=== PATIENT | female | born 1945 | race Caucasian/White ===

== ENCOUNTER 2016-03-26 11:39 | Emergency (ER) | payer OTHER ==
[~2016-03-26] VITALS: Ht 154.9 cm; Wt 85.3 kg
[~2016-03-26 11:39] MED LIST: ASPI81TA28 PO; ESOM20CA PO; ESTR0.5T3 PO; FLV400 PO; LISI-787 PO
[2016-03-26 11:55] VITALS: TEMP 36.8; Ht 154.9 cm; Wt 85.3 kg
[2016-03-26] MEDS ORDERED: SIMV40TA2 PO (12:31)
[2016-03-26 12:36] LABS: BASO % 0.4 %; BASO ABS # 0.03 K/uL (0-0.2); COMPLETE YES; EOS % 0.7 %; HEMATOCRIT 41.8 % (37-47); IG% 0.2 %; LYMPH % 32.8 %; LYMPH ABS # 2.68 K/uL (1.2-3.4); MEAN CELL VOLUME 85.3 fL (80-100); MEAN CORPUSCULAR HEMOGLOBIN 29.4 pg (25-34); MEAN CORPUSCULAR HGB CONC 34.4 g/dl (32-36); MEAN PLATELET VOLUME 10.3 fL (7.4-10.4); MONO % 5.9 %; PLATELET COUNT 305 K/uL (130-400); WHITE BLOOD COUNT 8.18 K/uL (4.8-10.8)
[2016-03-26 12:37] VITALS: O2SAT 96
[2016-03-26 12:43] LABS: BUN/CREATININE RATIO 14.7 (10-20); CALCIUM 9.5 mg/dl (8.5-10.1); CREATININE 0.94 mg/dl (0.60-1.20); MAGNESIUM 1.9 mg/dl (1.8-2.4); POTASSIUM 3.6 mmol/L (3.5-5.1)
[2016-03-26 12:45] LABS: PROTHROMBIN TIME (PATIENT) 10.7 SECONDS (9.0-12.0)
[2016-03-26 12:54] LABS: ALB/GLOB RATIO 1.1 (0.9-2); CKMB/CK RATIO 1.2 (0-3.0); THYROID STIMULATING HORMONE 1.78 uIu/ml (0.300-4.500)
--- NOTE | 2016-03-26 12:54 | DIAGNOSTIC IMAGING REPORT ---
CHEST ONE VIEW PORTABLE HISTORY: Hypertension. COMPARISON: Chest 03/18/2007. FINDINGS: The lungs are clear. Cardiac silhouette is normal in size. No pleural effusions. No pneumothorax. Lumbar spinal fusion hardware is partially visualized. IMPRESSION: No acute process. Electronically signed by: Vaughn Velez M.D. 03/26/2016 12:53 PM Dictated Date/Time: 03/26/2016 12:52 PM
--- NOTE | 2016-03-26 13:03 | DIAGNOSTIC IMAGING REPORT ---
HEAD CT NONCONTRAST CT DOSE: 720.95 mGycm HISTORY: Hypertension htn/bitemporal has TECHNIQUE: Multiaxial CT images of the head were performed without the use of intravenous contrast. Comparison: None. Findings: The paranasal sinuses and mastoid air cells are clear. The calvarium and skull base are intact. The ventricles and sulci are within normal limits. There is no mass, hematoma, midline shift, or acute infarct. Impression: No acute intracranial abnormality. Electronically signed by: Nithin Moore M.D. 03/26/2016 1:02 PM Dictated Date/Time: 03/26/2016 1:00 PM
[2016-03-26] MEDS ORDERED: CLONIDINE HCL 0.1 MG TAB PO ONE (13:30)
--- NOTE | 2016-03-26 13:38 | EMERGENCY ROOM VISIT NOTE ---
ED Visit Note First contact with patient: 12:12 This Patient was discussed with the physician graduate research assistant, Fernando Cain PA-C. The pertinent historical and physical exam findings were confirmed. I agree with the studies ordered and with the interpretations of these studies. I agree with the disposition and care plan.
[2016-03-26 14:03] VITALS: BP 133/102; PULSE 98; O2SAT 96
[2016-03-26] MEDS ORDERED: CTP/1 PO (14:17)
--- NOTE | 2016-03-26 14:18 | EMERGENCY ROOM VISIT NOTE ---
History First contact with patient: 12:12 Chief Complaint: HYPERTENSION Stated Complaint: ELEVATED BP History of Present Illness The patient is a 70 year old female who presents to the Emergency Department by private vehicle for evaluation of her elevated blood pressure. The patient had a regularly scheduled appointment with her primary care provider this morning and was found to have hypertension. She is treated for hypertension, but reports that her blood pressure has not been this high. She does report having bitemporal headaches over the last few days, but she did not equate much to the. She reports minimal discomfort and only describes it as a "nagging" pain. She is tried nothing for her symptoms to this point. The patient reports no recent changes in her medications. The patient denies any falls. She does report striking her head on the handle of her refrigerator yesterday which did cause some minimal discomfort. The patient denies any blurry vision, double vision, ringing in the ears, dizziness, lightheadedness, slurred speech, facial droop, unilateral weakness/numbness, amongst others. She rates her current discomfort as a 0/10. The patient does not utilize any blood thinners. Review of Systems A complete 10-point Review of Systems was discussed with the patient, with pertinent positives and negatives listed in the History of Present Illness. All remaining Review of Systems questions can be considered negative unless otherwise specified. Past Medical/Surgical History Medical Problems: (1) Asthma, Unspecified (2) Back pain (3) Spinal cord stimulator status Surgical Problems: (1) Previous back surgery Family History No significant family history Social History Smoking Status: Never Smoker Marital Status: Housing Status: lives with significant other Occupation Status: retired Current/Historical Medications Scheduled Aspirin (Aspirin Ec), 81 MG PO QAM Clonidine Hcl (Catapres), 0.1 MG PO BID Esomeprazole Magnesium (Nexium), 20 MG PO QAM Folic Acid (Folic Acid), 400 MCG PO QAM Lisinopril & Hydrochlorothiazi (Zestoretic 20-12.5 mg), 1 TAB PO QAM Simvastatin (Zocor), 40 MG PO QPM Allergies Coded Allergies: Honey (Verified Allergy, Severe, throat swells;wheezing, 03/26/16) Bee Venom (Verified Allergy, Intermediate, swelling;hives, 03/26/16) Moxifloxacin (Verified Adverse Reaction, Intermediate, general "knocks me out", 03/26/16) Physical Exam Vital Signs Date Time Temp Pulse Resp B/P Pulse Ox O2 Delivery O2 Flow Rate FiO2 03/26/16 14:03 98 17 133/102 96 03/26/16 13:02 116 18 179/98 94 Room Air 03/26/16 12:37 104 03/26/16 12:37 96 Room Air 03/26/16 11:55 36.8 118 20 200/106 96 Room Air Pain Rating (0-10): 0 Physical Exam VITAL SIGNS - Vital signs and nursing notes were reviewed. GENERAL - 70-year-old female appearing her stated age who is in no acute distress. Communicates well with provider and answers questions appropriately. HEAD - Normocephalic, Atraumatic. No Hillman's Sign or Raccoon's Eyes. No depressed skull fractures palpable. EYES - PERRL with EOMI bilaterally. Sclera anicteric. Palpebral conjunctiva pink and moist with no injection noted. EARS - No deformities of external structures noted on gross examination bilaterally. No pain elicited with palpation of the tragus bilaterally. External auditory canals without discharge or otorrhea. Tympanic membranes pearly briscoe without retraction or bulging. NOSE - Midline and without cyanosis. No epistaxis or purulent drainage noted. Septum midline without deviation or septal hematoma noted. MOUTH/OROPHARYNX - Without perioral cyanosis. Buccal mucosa pink and moist and without leukoplakia. Tongue midline with equal elevation of palate bilaterally. No tonsillar hypertrophy, erythema, or exudates noted. Good dentition noted. NECK - Neck with FROM. Supple to palpation. no lymphadenopathy noted. No nuchal rigidity. LUNGS - Chest wall symmetric without accessory muscle use, intercostals retractions, or central cyanosis. Normal vesicular breath sounds CTA B/L. No wheezes, rales, or rhonchi appreciated. CARDIAC - RRR with S1/S2. No murmur, rubs, or gallops appreciated. ABDOMEN - Abdominal contour obese and without pulsations or visible masses. BS normoactive all four quadrants. No tenderness, palpable masses, hepatosplenomegaly, or ascites noted. EXTREMITIES - No pretibial edema present. +3/5 radial and dorsalis pedis pulses palpated throughout. FROM with no tremors, fasciculations, or clonus noted on PROM throughout. +5/5 strength noted in UE/LE bilaterally. NEUROLOGIC - Cranial nerves II through XII grossly intact. Sensory intact to light touch throughout. Patellar reflexes +2/4. Patient able to perform rapid alternating movements appropriately. Negative Pronator Drift. Negative finger-to -nose. PSYCH - A&Ox3 and cooperates fully with examiner. Pt is very pleasant and interacts well with examiner. Medical Decision & Procedures ER Provider Diagnostic Interpretation: Radiological imaging and reports were reviewed by myself. Radiologist's Interpretation as follows: CHEST ONE VIEW PORTABLE HISTORY: Hypertension. COMPARISON: Chest 03/18/2007. FINDINGS: The lungs are clear. Cardiac silhouette is normal in size. No pleural effusions. No pneumothorax. Lumbar spinal fusion hardware is partially visualized. IMPRESSION: No acute process. HEAD CT NONCONTRAST CT DOSE: 720.95 mGycm HISTORY: Hypertension htn/bitemporal has TECHNIQUE: Multiaxial CT images of the head were performed without the use of intravenous contrast. Comparison: None. Findings: The paranasal sinuses and mastoid air cells are clear. The calvarium and skull base are intact. The ventricles and sulci are within normal limits. There is no mass, hematoma, midline shift, or acute infarct. Impression: No acute intracranial abnormality. Laboratory Results 03/26/16 12:10 Red Blood Count 4.90, Mean Corpuscular Volume 85.3, Mean Corpuscular Hemoglobin 29.4, Mean Corpuscular Hemoglobin Concent 34.4, Mean Platelet Volume 10.3, Neutrophils (%) (Auto) 60.0, Lymphocytes (%) (Auto) 32.8, Monocytes (%) (Auto) 5.9, Eosinophils (%) (Auto) 0.7, Basophils (%) (Auto) 0.4, Neutrophils # (Auto) 4.91, Lymphocytes # (Auto) 2.68, Monocytes # (Auto) 0.48, Eosinophils # (Auto) 0.06, Basophils # (Auto) 0.03 03/26/16 12:10 Test 03/26/16 12:10 White Blood Count 8.18 K/uL (4.8-10.8) Red Blood Count 4.90 M/uL (4.2-5.4) Hemoglobin 14.4 g/dL (12.0-16.0) Hematocrit 41.8 % (37-47) Mean Corpuscular Volume 85.3 fL (80-100) Mean Corpuscular Hemoglobin 29.4 pg (25-34) Mean Corpuscular Hemoglobin Concent 34.4 g/dl (32-36) Platelet Count 305 K/uL (130-400) Mean Platelet Volume 10.3 fL (7.4-10.4) Neutrophils (%) (Auto) 60.0 % Lymphocytes (%) (Auto) 32.8 % Monocytes (%) (Auto) 5.9 % Eosinophils (%) (Auto) 0.7 % Basophils (%) (Auto) 0.4 % Neutrophils # (Auto) 4.91 K/uL (1.4-6.5) Lymphocytes # (Auto) 2.68 K/uL (1.2-3.4) Monocytes # (Auto) 0.48 K/uL (0.11-0.59) Eosinophils # (Auto) 0.06 K/uL (0-0.5) Basophils # (Auto) 0.03 K/uL (0-0.2) RDW Standard Deviation 44.6 fL (36.4-46.3) RDW Coefficient of Variation 14.3 % (11.5-14.5) Immature Granulocyte % (Auto) 0.2 % Immature Granulocyte # (Auto) 0.02 K/uL (0.00-0.02) Prothrombin Time 10.7 SECONDS (9.0-12.0) Prothromb Time International Ratio 1.0 (0.9-1.1) Activated Partial Thromboplast Time 25.6 SECONDS (21.0-31.0) Partial Thromboplastin Ratio 1.0 Anion Gap 13.0 mmol/L (3-11) Est Creatinine Clear Calc Drug Dose 55.2 ml/min Estimated GFR () 71.2 Estimated GFR (Non- 61.5 BUN/Creatinine Ratio 14.7 (10-20) Calcium Level 9.5 mg/dl (8.5-10.1) Magnesium Level 1.9 mg/dl (1.8-2.4) Total Bilirubin 0.6 mg/dl (0.2-1) Aspartate Amino Transf (AST/SGOT) 28 U/L (15-37) Alanine Aminotransferase (ALT/SGPT) 41 U/L (12-78) Alkaline Phosphatase 111 U/L (45-117) Total Creatine Kinase 98 U/L (26-192) Creatine Kinase MB 1.2 ng/ml (0.5-3.6) Creatine Kinase MB Ratio 1.2 (0-3.0) Troponin I < 0.015 ng/ml (0-0.045) Total Protein 8.1 gm/dl (6.4-8.2) Albumin 4.2 gm/dl (3.4-5.0) Globulin 3.9 gm/dl (2.5-4.0) Albumin/Globulin Ratio 1.1 (0.9-2) Lipase 108 U/L (73-393) Thyroid Stimulating Hormone (TSH) 1.780 uIu/ml (0.300-4.500) Medications Administered Medications (Trade) Dose Ordered Sig/Charles Route Start Time Stop Time Status Last Admin Dose Admin Clonidine HCl (Catapres Tab) 0.1 mg NOW ONCE PO 03/26/16 13:30 03/26/16 13:31 DC 03/26/16 13:24 0.1 MG Procedure Patient was placed on the youth nutritional monitor and monitored throughout the entire extent of their stay. In addition, the patient's pulse oximetry was monitored throughout the entire stay. Any abnormalities or aberrancies were addressed appropriately. ECG Indication: other (hyptertension) Rate (beats per minute): 121 Rhythm: sinus tachycardia Findings: no acute ischemic change, no ectopy Change: no significant change (from 02/07/2014.) ED Course Patient was seen and evaluated by myself. Labs were drawn, saline lock in place. EKG and chest x-ray as well as CT of the head were obtained. Laboratory results demonstrate no acute leukocytosis, worrisome anemia, or bandemia. The patient has no significant electrolyte abnormalities. Cardiac enzymes are unremarkable. Troponin was negative. CT the head was unremarkable. Patient was discussed with my attending physician who agrees with diagnostic approach and treatment plan. The patient was treated with 0.1 mg clonidine orally. Her blood pressure did resolve nicely. The patient points no discomfort this time. The patient was encouraged to follow up with her primary care provider from today's visit. She was educated on worrisome symptoms for return visit to the emergency department. Patient discharged home in good condition. Medical Decision Given the patient's presentation and stated complaints, I did elect to perform the above-mentioned workup. The patient presents today with hypertension as well as bitemporal headaches. The patient has no focal neurological deficits. Her exam is otherwise unremarkable. Her blood pressure responded nicely wound the emergency department. CT the head demonstrates no acute findings. EKG demonstrates no acute findings either. Cardiac assessment and electrolytes are unremarkable. The patient will continue her current blood pressure medications. She'll be started on clonidine for the next few days. She'll follow-up with her primary care provider from today's visit or return for changing/worsening symptoms. Patient discharged home in good condition. In the evaluation and treatment of this patient, the following differential diagnoses were considered: AL, ASC, Dysrhythmia, Angina, Mediastinitis, GERD, Esophagitis, PE, Pneumonia, Bronchitis, Costochondritis, Rib Fracture, Zoster. Impression Primary Impression: Hypertension Additional Impression: Headache Departure Information Dispostion Home / Self-Care Condition GOOD Prescriptions Clonidine Hcl (CATAPRES) 0.1 Mg Tab 0.1 MG PO BID for 7 Days, #14 TAB Prov: Fernando Cain PA-C 03/26/16 Referrals Reynaldo Mai M.D. (PCP) Patient Instructions Hypertension Control, [facility] Additional Instructions You have been treated in the Emergency Department for your Hypertension. For pain control, you can use the following epwi-fco-cisgqai medicines (if >12 yo): - Regular strength (325mg/tab) Tylenol (acetaminophen) 2 tabs every 4-6 hours as needed. Do not exceed 12 tablets in a 24 hour period. Avoid taking more than 4 grams (4000 mg) of Tylenol per day. This includes any other sources of acetaminophen you may take on a regular basis. - Regular strength (200 mg/tab) Advil (ibuprofen) 1-2 tabs every 4-6 hours as needed. Do not exceed a dose of 3200 mg per day. You should schedule a follow-up appointment with your Primary Care Provider in 2 -3 days for further evaluation from today's Emergency Department visit. Return to the Emergency Department if your current symptoms worsen despite treatment course outlined above, or if you develop any of the following symptoms : worsening chest pain, associated jaw/arm pain, nausea, dizziness, shortness of breath, bloody cough, or fainting. Problem Qualifiers Primary Impression: Hypertension Hypertension type: unspecified secondary hypertension Qualified Codes: I15.9 - Secondary hypertension, unspecified Additional Impression: Headache Headache type: unspecified Headache chronicity pattern: acute headache Intractability: not intractable Qualified Codes: R51 - Headache
== END 2016-03-26 14:54 | disposition home or self-care (01) ==
LOC: C.EDB 11:40 → C.EDC 14:54
DX: I10 Essential (primary) hypertension (principal); R51 Headache; R00.0 Tachycardia, unspecified; J45.909 Unspecified asthma, uncomplicated; Z98.890 Other specified postprocedural states; Z79.82 Long term (current) use of aspirin; Z79.899 Other long term (current) drug therapy; Z88.8 Allergy status to other drugs, medicaments and biological substances; Z91.018 Allergy to other foods; Z91.030 Bee allergy status

== ENCOUNTER → 2016-06-14 | Outpatient (CLI) | payer OTHER ==
[~2016-06-14] MED LIST changes: -ESTR0.5T3 PO; +SIMV40TA2 PO
--- NOTE | 2016-06-14 12:16 | DIAGNOSTIC IMAGING REPORT ---
Limited bone scan BONE SCAN LIMITED (NM) CLINICAL HISTORY: Foot and ankle pain TECHNIQUE: Examination is acquired following the administration of 27.5 mCi technetium 99m MDP. COMPARISON STUDY: None FINDINGS: Mild scattered degenerative activity of the right and to lesser extent left heel and foot. There is mild involvement of the intertarsal region of the left ankle and foot area so more prominent increase in activity is seen at the posterior calcaneus on the right, as well as tarsometatarsal and metatarsophalangeal joint regions of the right foot. This pattern is suggestive of a degenerative process. IMPRESSION: Findings consistent with degenerative change of the right and to a lesser extent ankle and foot. Electronically signed by: Nithin Moore M.D. 06/14/2016 12:14 PM Dictated Date/Time: 06/14/2016 12:12 PM
== END | disposition home or self-care (01) ==
LOC: C.NUCL 07:49
PROVIDERS: ATTEND Orthopaedic Surgery
DX: M72.2 Plantar fascial fibromatosis (principal)

== ENCOUNTER → 2017-09-01 | Outpatient (CLI) | payer OTHER ==
[2017-09-01 13:44] LABS: BLOOD UREA NITROGEN 18 mg/dl (7-18); CARBON DIOXIDE 26 mmol/L (21-32); CHOLESTEROL 300 mg/dl (0-200); CREATININE 0.92 mg/dl (0.60-1.20); GLUCOSE 105 mg/dl (70-99); LDL CHOLESTEROL CALCULATED 209 mg/dl; SODIUM 138 mmol/L (136-145)
== END | disposition home or self-care (01) ==
LOC: C.LABPBG 09:00
PROVIDERS: ATTEND Family Medicine
DX: E78.5 Hyperlipidemia, unspecified (principal); I10 Essential (primary) hypertension

== ENCOUNTER 2018-05-28 10:05 | Inpatient (IN) ==
--- NOTE | 2018-05-12 13:06 | Anesthesiology Consultation ---
Date of Service May 12, 2018 Assessment & Plan (1) Encounter for pre-operative examination: Chart Review Chart Review: Acceptable Risk for Surgery and Patient seen in Pre Admission Testing Consults Requested none Patient was reviewed by cardio and Dr. Carrasco's office sent a not over stating " Ms. Hillman is cleared and may hold her Eliquis 48 hrs prior to her upcoming surgical procedure. She should resume Eliquis as soon as safely possible when cleared by surgeon. Thank you regarding this matter." Teaching & Discussion Pre-Anesthesia Teaching/Discussion Notes: Instructed NPO after midnight before surgery, except medications with 15 cc of water. Medication instructions provi ded according to the PAT guidelines. History Surgery Operation Date: 05/28/18 07:30 Proposed Procedures p Removal Implants L2-L3, L3-L4, - Stone Wyatt DO s T12-L1, L1-L2 Intrumentation and Fusion - Stone Wyatt DO Height/Weight Height: 5 ft 1 in Weight: 82.8 kg Allergies Allergy/AdvReac Type Severity Reaction Status Date / Time honey Allergy Severe throat Verified 05/07/18 14:58 swells;wheezing bee pollen Allergy hives, Verified 05/07/18 14:58 throat swelling moxifloxacin AdvReac Intermediate general Verified 05/07/18 14:58 "knocks me out" Medications Home Medications Medication Instructions Recorded Confirmed Last Taken acetaminophen 1,000 mg PO Q6H PRN 05/07/18 05/07/18 Unknown apixaban [Eliquis] 5 mg PO BID 05/07/18 05/07/18 Unknown aspirin [Aspir-81] 81 mg PO QAM 05/07/18 05/07/18 Unknown atorvastatin 40 mg PO 3XWK 05/07/18 05/07/18 Unknown coenzyme Q10 [CoQ-10] 100 mg PO QPM 05/07/18 05/07/18 Unknown diltiazem HCl [Cartia XT] 120 mg PO QPM 05/07/18 05/07/18 Unknown esomeprazole magnesium 20 mg PO QAM 05/07/18 05/07/18 Unknown folic acid 0.8 mg PO QAM 05/07/18 05/07/18 Unknown lisinopril-hydrochlorothiazide 1 tab PO QAM 05/07/18 05/07/18 Unknown tramadol 50 mg PO Q12H PRN 05/07/18 05/07/18 Unknown Past Medical History Medical History Atrial fibrillation Degenerative disc disease GERD (gastroesophageal reflux disease) History of shingles Hx of myocardial infarction Was not feeling well and was sent to [facility] by PCP. Did cardiac cath with no stents. Hyperlipidemia Hypertension Osteoarthritis Past Family History Family History Mother Family history of diabetes mellitus Other FHx: brain cancer FHx: breast cancer Past Surgical History Surgical History History of back surgery x2 History of cardiac cath 09/2017 - [facility] History of carpal tunnel release of both wrists History of cataract surgery History of partial hysterectomy right ovary not removed Hx of arthroscopic knee surgery right Hx of foot surgery x3 procedures at same surgery - foot, heel , lower tib/fib Nausea and vomiting after administration of anesthetic agent Past Anesthesia History No Hx of Anesthesia Complications and No Family Hx of Anesthesia Complications History of PONV Yes Motion Sickness Screening History of Motion Sickness: No Social History Smoking Status: Never smoker Do You Dip or Chew Tobacco: No Hx Alcohol Use: Yes Alcohol type: wine alcohol intake frequency: holidays/special occasions only Hx Substance Use: No Exercise / Class Metabolic Activity II 4-5 Yardwork/Stairs/Walk up hill (Limited due to back pain. Denies CP or SOB. Lives on one story and hasn't climbed stairs in many months. ) Review of Systems Patient denies chest pain, shortness of breath, dyspnea on exertion, cough, wheezing, palpitations. +Joint Pain (back, knees) +Acid Reflux (controlled with medication) Physical Exam Vital Signs BP: 117/75 P: 81 R: 16 T: 97.8 SPO2: 96% on RA ENMT Thyromental Distance: > or= 3.5 Finger Breadths (3.5) Mallampati Class: I Neck normal visual inspection, trachea midline and + limited neck extension Respiratory normal respiratory effort Auscultation: lungs clear to auscultation bilaterally Cardiovascular Rate/Rhythm: regular rate and regular rhythm Heart Sounds: no murmur Vessels: no carotid bruit Neurologic moves all extremities Motor/Sensory: + sensory deficit Psychiatric Orientation: alert and oriented x 3 Testing Electrocardiogram Date: 01/08/18 Findings: + NSR @ (91) Left atrial enlargement. Poor R wave progression - may be secondary to pulmonary disease consider old anterior infarct. Low voltage with rightward P-axis and rotation- possible pulmonary disease. Chest X-Ray Date: 05/12/18 Findings: + NAD FINDINGS: PA and lateral chest radiographs are compared to study dated 03/26. The cardiomediastinal silhouette is unremarkable, noting atherosclerotic calcification of the thoracic aorta. Chronic interstitial thickening is similar to previous. The lungs and pleural spaces are clear. There is no pneumothorax. The skeletal structures are osteopenic. The bony thorax appears intact. Fusion hardware is partially imaged in the upper lumbar spine. IMPRESSION: No active disease in the chest. Cardiac Catheterization Date: 10/03/17 Findings: + normal Intervention: + none IMPRESSION AND PLAN: 1. Moderate mid LAD stenosis with borderline first diagonal branch proximal stenosis. 2. Normal left ventricular systolic function. COMPLICATIONS: 1. None. RECOMMENDATIONS: 1. Medical therapy and aggressive risk factor modification. Laboratory Results 05/12/18 13:37 05/12/18 13:37 Blood Type O Positive 05/12/18 13:37 Antibody Screen NEGATIVE 05/12/18 13:37 PT 10.3 Seconds (9.0-12.0) 05/12/18 13:37 INR 1.0 (0.9-1.1) 05/12/18 13:37 APTT 27.9 Seconds (21.0-31.0) 05/12/18 13:37
--- NOTE | 2018-05-12 13:10 | PAT Medication Instructions ---
Medication Instructions Date of Service May 12, 2018 Home Medications acetaminophen 1,000 mg PO Q6H NEEDED apixaban [Eliquis] 5 mg PO BID aspirin [Aspir-81] 81 mg PO QAM atorvastatin 40 mg PO 3XWK coenzyme Q10 [CoQ-10] 100 mg PO QPM diltiazem HCl [Cartia XT] 120 mg PO QPM esomeprazole magnesium 20 mg PO QAM folic acid 0.8 mg PO QAM lisinopril-hydrochlorothiazide 1 tab PO QAM tramadol 50 mg PO Q12H NEEDED Continue as directed atorvastatin 40 mg PO 3XWK ASK your prescriber and surgeon apixaban [Eliquis] 5 mg PO BID aspirin [Aspir-81] 81 mg PO QAM STOP taking 2 weeks before surgery coenzyme Q10 [CoQ-10] 100 mg PO QPM DO NOT take the morning of surgery folic acid 0.8 mg PO QAM lisinopril-hydrochlorothiazide 1 tab PO QAM Take morning of surgery With a small sip of water, OTHERWISE NOTHING TO EAT OR DRINK AFTER MIDNIGHT: acetaminophen 1,000 mg PO Q6H NEEDED tramadol 50 mg PO Q12H NEEDED (stop 4 hours before surgery) esomeprazole magnesium 20 mg PO QAM Take evening before surgery acetaminophen 1,000 mg PO Q6H NEEDED tramadol 50 mg PO Q12H NEEDED diltiazem HCl [Cartia XT] 120 mg PO QPM Other Notes If you have any questions please call us at [phone] or [phone] or [phone] or [phone]
--- NOTE | 2018-05-12 14:09 | XRay Report ---
TWO VIEW CHEST CLINICAL HISTORY: Preoperative examination. FINDINGS: PA and lateral chest radiographs are compared to study dated 03/26/2016. The cardiomediastin al silhouette is unremarkable, noting atherosclerotic calcification of the thoracic aorta. Chronic in terstitial thickening is similar to previous. The lungs and pleural spaces are clear. There is no pn eumothorax. The skeletal structures are osteopenic. The bony thorax appears intact. Fusion hardware i s partially imaged in the upper lumbar spine. IMPRESSION: No active disease in the chest. Electronically signed by: Vitor Currie M.D. 05/12/2018 2:08 PM
[2018-05-12 14:39] LABS: Basophils # (auto) 0.03 K/uL (0-0.2); Basophils % (auto) 0.4 %; Eosinophils # (auto) 0.15 K/uL (0-0.5); Hematocrit (blood only) 41.1 % (37-47); Hemoglobin 13.7 g/dL (12.0-16.0); Immature Granulocytes # (auto) 0.01 K/uL (0.00-0.02); Immature Granulocytes % (auto) 0.1 %; Lymphocytes # (auto) 2.39 K/uL (1.2-3.4); Lymphocytes % (auto) 31.7 %; Mean Corpuscular Hgb Conc 33.3 g/dL (32-36); Mean Platelet Volume 10.6 fL (7.4-10.4); Monocytes # (auto) 0.42 K/uL (0.11-0.59); Monocytes % (auto) 5.6 %; Neutrophils # (auto) 4.54 K/uL (1.4-6.5); Neutrophils % (auto) 60.2 %; Platelet Count 262 K/uL (130-400); RDW Coefficient of Variation 15.1 % (11.5-14.5); RDW Standard Deviation 49.2 fL (36.4-46.3); Red Blood Count 4.62 M/uL (4.2-5.4); White Blood Count 7.54 K/uL (4.8-10.8)
[2018-05-12 14:49] LABS: BUN Creatinine Ratio 19.3 (10-20); Calcium 9.1 mg/dl (8.5-10.1); Est GFR (African American) 77.1; Est GFR (Non-African American) 66.6; Potassium 3.7 mmol/L (3.5-5.1)
[2018-05-12 14:58] LABS: Partial Thromboplastin Time 27.9 Seconds (21.0-31.0); Prothrombin Time 10.3 Seconds (9.0-12.0)
--- NOTE | 2018-05-27 11:50 | History and Physical Report ---
DATE OF ADMISSION: 05/28/2018 CHIEF COMPLAINT: Low back pain, paresthesias, numbness, and tingling. Working diagnosis of instability and stenosis, lumbar spine. HISTORY OF PRESENT ILLNESS: Adelaida is delightful. She has a breakdown of her fusion, instability and stenosis up above her prior fusion. Otherwise, she is relatively stable with her pain. She is miserable, mild neurological deficits. PAST MEDICAL HISTORY: Positive for rheumatoid arthritis, high cholesterol, heart disease, hypertension. PAST SURGICAL HISTORY: Lumbar spine surgery x2, foot surgery, hand surgery, eye surgery, knee surgery. ALLERGIES: Negative. FAMILY HISTORY: Heart disease and stroke, breast carcinoma. SOCIAL HISTORY: . No alcohol or tobacco. Little activity secondary to pain. Three grown children. REVIEW OF SYSTEMS: Twelve-system review taken today. No fevers, sweats, or chills. Ear, nose and throat negative. Denies chest pain, palpitations, or heart beat changes. No asthma, wheezing, or shortness of breath. No nausea/vomiting, no urgency or frequency. She denies depression or confusion. She has joint pain, stiffness, muscle pain, and weakness. MEDICATIONS: Nexium, lisinopril, folic acid, Zocor, diltiazem, Eliquis, tramadol. PHYSICAL EXAMINATION: VITAL SIGNS: She is 5 feet 1 inch, 180 pounds. Blood pressure 130/80, pulse 80, respiratory rate 16, afebrile. HEENT: Pupils react to light and accommodation. Ear, nose and throat clear. CARDIAC: Normal S1, S2. No S3. LUNGS: Clear to auscultation. ABDOMEN: Soft, nontender. MUSCULOSKELETAL: She has slight hyperreflexia. She has marked decreased range of motion. Her wound is clean and dry. She has no true profound weakness, but moderate gait abnormality. IMPRESSION: Includes segmental instability and stenosis. PLAN: Includes removal of spinal implants, L2-L3 and L3-L4, and instrumentation and fusion, T12-L1 and L1-L2.
[~2018-05-28 10:05] MED LIST changes: +ACETAMINOPHEN 1,000 MG/100 ML VIAL IV ONE; +ACETAMINOPHEN 500 MG TAB PO SCH; -ASPI81TA28 PO; +CEFAZOLIN 2000MG 2,000 MG/15 ML SYR IV SCH; -ESOM20CA PO; -FLV400 PO; -LISI-787 PO; +LR 15ML/HR IV SCH; +LR 60ML/HR IV SCH; -SIMV40TA2 PO; +SODIUM CHLORIDE 0.9% 1,000 ML IV SCH
[2018-05-28] MEDS ORDERED: ACETAMINOPHEN 1,000 MG/100 ML VIAL IV ONE (10:55)
[2018-05-28] MEDS ORDERED: THROMBIN FOR SOLN 20000 UNIT KIT ONE (12:08)
[2018-05-28] MEDS ORDERED: GELATIN SPONGE SZ 100 ONE (12:08)
[2018-05-28] MEDS ORDERED: BUPIVACAINE/EPINEPHRINE 0.5% MPF 1:200,000 30 ML VIAL ONE (12:08)
[2018-05-28] MEDS ORDERED: BACITRACIN INJ 50,000 UNIT VIAL ONE (12:08)
[2018-05-28] MEDS ORDERED: VANCOMYCIN HCL 1000MG/20ML VIAL ONE (12:08)
[2018-05-28] MEDS ORDERED: fentaNYL citrate 100 MCG/2 ML VIAL ONE (12:13)
[2018-05-28] MEDS ORDERED: MIDAZOLAM HCL 1 MG/ML 2ML VIAL ONE (12:13)
--- NOTE | 2018-05-28 12:14 | History & Physical Bridge Note ---
Date of Service May 28, 2018 History & Physical Bridge Note I have examined the patient, reviewed the History & Physical and in the interval since the performance of the History & Physical I have noted the following changes of clinical significance: no changes noted
--- NOTE | 2018-05-28 12:40 | History & Physical Bridge Note ---
Date of Service May 28, 2018 History & Physical Bridge Note I have examined the patient, reviewed the History & Physical and in the interval since the performance of the History & Physical I have noted the following changes of clinical significance: no changes noted. also l2-3 instrumentation and fusion
[2018-05-28] MEDS ORDERED: ATROPINE SULFATE 0.1 MG/ML 10ML SYR IV PRN (12:56)
[2018-05-28] MEDS ORDERED: HYDROmorphone INJ 1 MG/ML SYRINGE IV PRN (12:56)
[2018-05-28] MEDS ORDERED: fentaNYL citrate 100 MCG/2 ML VIAL IV PRN (12:56)
[2018-05-28] MEDS ORDERED: ONDANSETRON INJ 2 MG/ML 2 ML VIAL IV PRN ×2 (12:56→16:01)
[2018-05-28] MEDS ORDERED: ePHEDrine sulfate 50 MG/ML AMP IV PRN (12:56)
--- NOTE | 2018-05-28 12:56 | Procedure Note ---
Procedure Note Date of Service May 28, 2018 Radial arterial line placed in ASU 2 bay 7 at 1230 in preparation for back surgery with Dr. Wyatt. Left wrist prepped with chlorhexidine and draped with sterile towels. Site infiltrated with 1 cc of 1% lidocaine. 20 G angiocath placed under sterile technique utilizing sterile gloves, surgical hats and masks. Catheter threaded using seldinger technique with return of pulsatile, bright red blood. Site covered with occlusive dressing and taped in place. Waveform consistent with correct arterial placement. After placement, fingers of procedural hand had normal perfusion. Patient tolerated procedure well without complications. Coding
[2018-05-28] MEDS ORDERED: HYDROmorphone INJ 2 MG/ML SYR/VIAL ONE (13:10)
[2018-05-28] MEDS ORDERED: NEOSTIGMINE METHYLSULFATE 5 MG/5 ML SYR ONE (14:24)
[2018-05-28] MEDS ORDERED: ONDANSETRON INJ 2 MG/ML 2 ML VIAL ONE (14:24)
[2018-05-28] MEDS ORDERED: GLYCOPYRROLATE 0.2 MG/ML VIAL ONE (14:24)
[2018-05-28] MEDS ORDERED: LIDOCAINE HCL 2% 2 ML VIAL/AMP(20MG/ML) INFIL ONE (14:24)
[2018-05-28] MEDS ORDERED: PROPOFOL IV EMULSION 10 MG/ML 20 ML VIAL IV ONE (14:24)
[2018-05-28] MEDS ORDERED: DEXAMETHASONE SOD INJ 4 MG/ML VIAL ONE (14:24)
--- NOTE | 2018-05-28 14:43 | Fluoroscopy Report ---
LUMBAR SPINE, INTRAOPERATIVE FLUOROSCOPY HISTORY: T12-L3 posterior fusion. FLUOROSCOPY TIME: 3 seconds. FINDINGS: Intraoperative fluoroscopy was provided for the lumbar spine. Single fluoroscopic spot imag e demonstrates pedicle screws within the lower thoracic and lumbar spine. The exact levels are diffic ult to determine on this single image. The hardware appears intact. IMPRESSION: Fluoroscopy provided for a T12-L3 posterior decompression and fusion. Electronically signed by: Vaughn Velez M.D. 05/28/2018 2:42 PM
[2018-05-28] MEDS ORDERED: PHENYLEPHRINE HCL 10 MG/ML VIAL ONE (14:46)
[2018-05-28] MEDS ORDERED: BISACODYL 10 MG SUPP PR PRN (16:01)
[2018-05-28] MEDS ORDERED: HYDROmorphone INJ 0.5 MG/0.5 ML SYR IV PRN (16:01)
[2018-05-28] MEDS ORDERED: SODIUM CHLORIDE 0.9% 1000ML 1,000 ML IV SCH (16:01)
[2018-05-28] MEDS ORDERED: MAGNESIUM HYDROXIDE SUSP 30 ML UDC PO PRN (16:01)
[2018-05-28] MEDS ORDERED: ACETAMINOPHEN 1,000 MG/100 ML VIAL IV PRN (16:01)
--- NOTE | 2018-05-28 17:22 | Anesthesiology Progress Note ---
Date of Service May 28, 2018 Anesthesia Post Procedure Vital Signs Vital Signs: Temp Pulse Pulse Resp BP BP Pulse Ox 05/28/18 17:05 36.7 C 78 15 116/74 93 05/28/18 16:20 36.5 C 69 18 115/73 98 05/28/18 15:45 36.7 C 81 16 127/74 99 05/28/18 15:30 36.4 C L 90 16 124/74 98 05/28/18 15:20 87 16 129/62 97 05/28/18 15:10 90 14 118/70 99 05/28/18 15:01 36.0 C L 107 H 17 144/82 H 96 05/28/18 10:31 36.8 C 95 H 20 133/87 96 Pain Intensity Lower Back: Pain Intensity: 8 Notes Mental Status: alert / awake / arousable and participated in evaluation Patient Amnestic to Procedure: Yes Nausea / Vomiting: adequately controlled Pain: adequately controlled Airway Patency, RR, SpO2: stable & adequate BP & HR: stable & adequate Hydration State: stable & adequate Anesthetic Complications: no major complications apparent and Pt Satisfied with anesthetic care
[2018-05-28] MEDS: CEFAZOLIN 2000MG 2,000 MG/15 ML SYR IV SCH (20:21)
[2018-05-28] MEDS: dilTIAZem HCL 120 MG CAPCR PO SCH (20:26)
[2018-05-28] MEDS: DOCUSATE SODIUM/SENNA 50/8.6MG TAB PO SCH (20:28)
[2018-05-28] MEDS ORDERED: NON-FORMULARY MEDICATION (Coenzyme Q10 [Coq-10] 100 MG) PO SCH (21:00)
[2018-05-28] MEDS: dexAMETHasone 6 MG in SYRINGE 0 ML IV SCH (21:33)
[2018-05-28] MEDS: OXYCODONE HCL IR 5 MG TAB (IMMEDIATE RELEASE) PO PRN (23:51)
--- NOTE | 2018-05-29 04:11 | Operative Report ---
DATE OF OPERATION: 05/28/2018 PREOPERATIVE DIAGNOSES: Spinal stenosis, lumbar spine, L1-L2, T12-L1, instability thoracic spine from T12-L3. POSTOPERATIVE DIAGNOSES: Spinal stenosis, lumbar spine, L1-L2, T12-L1, instability thoracic spine from T12-L3. PROCEDURE: 1. Lumbar spine decompression laminectomy, foraminotomy, partial facetectomy, decompression of neural elements of thoracolumbar spine T12-L1 and L1-L2. 2. Removal of pedicle screw instrumentation from L2 and L3 bilaterally. 3. Pedicle screw instrumentation and segmental instrumentation T12, L1, L2, L3, bilaterally. 4. Posterior lateral fusion, T12, L1, L2. SURGEON: Stone Wyatt DO [employer] SPECIALIST: Brian Murphy PA-C. DESCRIPTION OF PROCEDURE: The patient was taken to the operating room, a general intubated anesthetic provided to the patient, placed prone, scrubbed, prepped and draped sterile. We made a skin incision which is her own old skin incision dissecting the soft tissue. We took the soft tissue down over the transverse process of the vertebrae from T12, L1, L2, L3 and L4. I was able to remove the prior instrumentation system that was spanning the vertebrae 2, 3 and 4. This was removed bilaterally. I then decompressed the neural elements starting from 12, I decompressed from 12-1, from 1-2 of the lumbar spine, foraminotomies and partial facetectomies. I then re-instrumented the spine T12, L1, L2, L3 of the thoracolumbar spine bilaterally. I then used a lee construct to connect these. OPERATION: Posterior lateral fusion, T12, L1, L2 and L3, thoracolumbar spine. After the patient was successfully taken to the operating room, we were able to decompress the neural elements. As stated above, I was safely able to get pedicle screws into the vertebrae, T12, L1, L2 and L3, I used C-arm guidance, I used anatomic landmarks as well. I was pleased with the decompression, I was pleased with the instrumentation, ____ construct. We were careful all the bleeding, the tissues, we make sure we had no extra bleeding. All the epidurals were controlled. We then bone grafted out of the transverse processes of T12, L1, L2 and L3, which was a posterior lateral fusion at those levels. We then began our closure over the Gelfoam and vancomycin powder with 1 Vicryl suture, 2-0 and 3-0 nylon on the skin. Sterile dressings applied. The patient returned to PACU stable. There were no apparent intraoperative complications with the procedure. BLOOD LOSS: 200 mL. COMPLICATIONS: Zero. IMPLANTS USED: By the [employer]. I attest to the content of the Intraoperative Record and any orders documented therein. Any exception s are noted below.
[2018-05-29] MEDS: OXYCODONE HCL IR 5 MG TAB (IMMEDIATE RELEASE) PO PRN ×4 (05:18→21:19)
[2018-05-29] MEDS: CEFAZOLIN 2000MG 2,000 MG/15 ML SYR IV SCH (05:18)
[2018-05-29] MEDS: dexAMETHasone 6 MG in SYRINGE 0 ML IV SCH ×2 (05:18→13:53)
[2018-05-29 06:12] LABS: Hematocrit (blood only) 31.8 % (37-47); Hemoglobin 10.7 g/dL (12.0-16.0); Mean Corpuscular Hgb Conc 33.6 g/dL (32-36); Mean Corpuscular Volume 88.3 fL (80-100); Mean Platelet Volume 10.3 fL (7.4-10.4); Platelet Count 212 K/uL (130-400); RDW Coefficient of Variation 14.1 % (11.5-14.5); RDW Standard Deviation 45.8 fL (36.4-46.3)
--- NOTE | 2018-05-29 07:32 | Anesthesiology Progress Note ---
Date of Service May 29, 2018 Anesthesia Post Procedure Vital Signs Vital Signs: Temp Pulse Pulse Resp BP BP Pulse Ox 05/29/18 03:03 36.8 C 89 16 138/74 93 05/28/18 22:50 36.8 C 86 16 104/68 97 05/28/18 20:18 99 H 117/80 05/28/18 18:48 36.4 C L 82 16 114/75 96 05/28/18 17:55 36.6 C 82 16 153/82 H 98 05/28/18 17:05 36.7 C 78 15 116/74 93 05/28/18 16:20 36.5 C 69 18 115/73 98 05/28/18 15:45 36.7 C 81 16 127/74 99 05/28/18 15:30 36.4 C L 90 16 124/74 98 05/28/18 15:20 87 16 129/62 97 05/28/18 15:10 90 14 118/70 99 05/28/18 15:01 36.0 C L 107 H 17 144/82 H 96 05/28/18 10:31 36.8 C 95 H 20 133/87 96 Pain Intensity Lower Back: Pain Intensity: 7 Notes Mental Status: alert / awake / arousable and participated in evaluation Nausea / Vomiting: adequately controlled Pain: adequately controlled Airway Patency, RR, SpO2: stable & adequate BP & HR: stable & adequate Hydration State: stable & adequate
[2018-05-29] MEDS: FOLIC ACID 400 MCG TAB PO SCH (08:38)
[2018-05-29] MEDS: PANTOprazole 40 MG TAB PO SCH (08:38)
[2018-05-29] MEDS: ASPIRIN 81 MG ECTAB PO SCH (08:38)
[2018-05-29] MEDS: APIXABAN 5 MG TABLET PO SCH ×2 (08:47→20:23)
[2018-05-29] MEDS: LISINOPRIL/HCTZ 20/12.5MG 1 TAB TAB PO SCH (08:49)
--- NOTE | 2018-05-29 10:39 | Progress Note ---
DATE: 05/29/2018 She is alert and oriented this morning. Pain controlled, bed rest. Have not been able to ambulate her. Vital signs stable, afebrile. Pulse slightly elevated at 102. Neurologically intact. ASSESSMENT: Status post major reconstructive spine surgery. She is out now approximately 16 hours. PLAN: We will get her up on her feet today if possible. We have home care involved. Discharge home tomorrow, which would be Friday late afternoon with home care. She has a walker at home.
[2018-05-29] MEDS: dilTIAZem HCL 120 MG CAPCR PO SCH (20:23)
[2018-05-29] MEDS: DOCUSATE SODIUM/SENNA 50/8.6MG TAB PO SCH (20:23)
[2018-05-30] MEDS: OXYCODONE HCL IR 5 MG TAB (IMMEDIATE RELEASE) PO PRN ×2 (01:15→10:52)
[2018-05-30] MEDS: FOLIC ACID 400 MCG TAB PO SCH (07:53)
[2018-05-30] MEDS: ASPIRIN 81 MG ECTAB PO SCH (07:53)
[2018-05-30] MEDS: APIXABAN 5 MG TABLET PO SCH (07:53)
[2018-05-30] MEDS: PANTOprazole 40 MG TAB PO SCH (07:54)
[2018-05-30] MEDS: LISINOPRIL/HCTZ 20/12.5MG 1 TAB TAB PO SCH (07:54)
[2018-05-30] MEDS ORDERED: ATORVASTATIN 40 MG TAB PO SCH (09:00)
--- NOTE | 2018-05-30 21:53 | Discharge Summary ---
She is alert, oriented, here today, no complaints. Vital signs stable. ____, blood pressure, afebrile. Alert, oriented. Taking p.o., ambulatory. She has had no events. She will be discharged home later today in improved stable condition. She had rigorous reconstructive spinal surgery. We will see her back in the office in 2 weeks. She has medication on her chart. She has a walker at home. Instructions have been given.
== END 2018-05-30 13:28 | disposition home health service (06) | DRG 460 ==
LOC: ASU 10:05 → 3E 14:29

== ENCOUNTER 2018-05-31 11:14 | Inpatient (IN) ==
[2018-05-31] MEDS ORDERED: SODIUM CHLORIDE 0.9% 1000ML 1,000 ML IV STA (12:08)
[2018-05-31] MEDS ORDERED: HYDROmorphone INJ 0.5 MG/0.5 ML SYR IV PRN (12:15)
[2018-05-31] MEDS ORDERED: ONDANSETRON INJ 2 MG/ML 2 ML VIAL IV STA (12:15)
[2018-05-31 12:43] LABS: Basophils # (auto) 0.01 K/uL (0-0.2); Basophils % (auto) 0.1 %; Hematocrit (blood only) 32.8 % (37-47); Immature Granulocytes # (auto) 0.06 K/uL (0.00-0.02); Immature Granulocytes % (auto) 0.5 %; Lymphocytes # (auto) 2.52 K/uL (1.2-3.4); Lymphocytes % (auto) 19.7 %; Mean Corpuscular Hgb Conc 33.5 g/dL (32-36); Mean Corpuscular Volume 88.6 fL (80-100); Mean Platelet Volume 10.1 fL (7.4-10.4); Monocytes # (auto) 1.21 K/uL (0.11-0.59); Monocytes % (auto) 9.5 %; Neutrophils # (auto) 8.98 K/uL (1.4-6.5); Neutrophils % (auto) 70.2 %; Platelet Count 258 K/uL (130-400); RDW Coefficient of Variation 14.3 % (11.5-14.5); RDW Standard Deviation 46.3 fL (36.4-46.3); White Blood Count 12.78 K/uL (4.8-10.8)
[2018-05-31] MEDS ORDERED: HYDROmorphone INJ 1 MG/ML SYRINGE IV PRN (13:09)
[2018-05-31] MEDS ORDERED: ONDANSETRON INJ 2 MG/ML 2 ML VIAL IV PRN (13:09)
[2018-05-31] MEDS ORDERED: HYDROCODONE/ACETAMOPHEN 5/325MG TAB PO PRN (13:09)
[2018-05-31] MEDS ORDERED: BUTALBITAL/ASPIRIN/CAFFEINE 1 TAB TAB PO PRN (13:11)
[2018-05-31] MEDS: OXYCODONE/ACETAMINOPHEN 5mg/325mg TAB PO PRN (15:46)
--- NOTE | 2018-05-31 16:08 | History and Physical Report ---
DATE OF ADMISSION: 05/31/2018 CHIEF COMPLAINT: Spinal headache. HISTORY OF PRESENT ILLNESS: The patient is delightful. I have known her for years. She had recent spine surgery I provided to her really 3-4 days ago. It was fairly uneventful. She went home Friday within a 40-hour window. She came back in the ER today with spinal headaches, draining from her wound seemingly spinal fluid versus blood. It soaked her all the absorbent pads she had at home. She presented today with blood pressure 112/68, pulse was 72, respirations were 14 with a normal temperature. She denies any chest pain, palpitations. Denies nausea, vomiting, urgency, frequency. Does have significant headache and photophobia. PHYSICAL EXAMINATION: GENERAL: She is alert, oriented. Communicates well. VITAL SIGNS: Stable. CARDIAC: Normal S1, S2. No S3. LUNGS: Clear. ABDOMEN: Soft, nontender. EXTREMITIES: She moves all extremities. She has no paralysis. SKIN: Her wound was inspected. The suture line is intact. She does have draining from the wound serosanguineous. IMPRESSION: Includes that of a delightful patient with a spinal headache from her spinal surgery. PLAN: On admitting her to my service for IV hydration, we will feed her today. More than likely we will make her n.p.o. after midnight and maybe repair her wound. I will reassess her in the morning to see if she is improved or not. She may be able to wait this out for a couple days and see if it does improve without surgical intervention. Her condition remains guarded.
--- NOTE | 2018-05-31 16:17 | Emergency Department Note ---
Entered by Rita Ibarra acting as a scribe for ED Provider Note CHIEF COMPLAINT: Wound HISTORY OF PRESENT ILLNESS: The patient is a 73 year old female who presents to the Emergency Room with complaints of persistent wound starting 1 day ago. The patient reports that she had back surgery 1 day ago. She states that she was discharged from the hospital 1 day ago and that her drainage tube was taken out at that time. She notes that since leaving the hospital her back has not stopped draining a light red colored fluid. She adds that she has had to change her shirt 6 times because of this persistent fluid. The patient reports that she has a headache and is nauseous. She states that her headache worsens when she stands up. She notes that her headache feels better when she lays down. The patient reports that Dr. Yoselin Salazar & Cheri Spinal Surgeon performed her back surgery. Pt denies LOC, fevers, chills, diaphoresis, visual changes, neck pain, chest pain, breathing difficulties, abdominal pain, melena, hematochezia, urinary symptoms, numbness, weakness, lymphadenopathy, rash, or other complaints. REVIEW OF SYSTEMS: See HPI for pertinent positives and negatives. A total of ten systems were reviewed and were otherwise negative. PMHx/PSHx: A-fib, HLD, HTN, GERD, Osteoarthritis, Degenerative disc disease, Shingles. History of cardiac catheterization, Cataract surgery, Back surgery, Carpel tunnel release in wrists, Partial hysterectomy, Foot surgery, Arthroscopic knee surgery. SOCIAL HISTORY: Patient lives at home. Never a smoker. PHYSICAL EXAM: GENERAL: Awake, alert, well-appearing, in no distress HENT: Normocephalic, atraumatic. Oropharynx unremarkable. EYES: PERRL. Normal conjunctiva. Sclera non-icteric. NECK: Inspection normal. Non-tender. Supple. No nuchal rigidity. FROM. No masses. RESPIRATORY: Clear to auscultation. No wheezes. No rales. Normal respiratory effort. CARDIAC: Normal rate. Normal rhythm. No murmurs. No rubs. Extremities warm and well perfused. Pulses equal. No JVD. GI: Soft, non-distended. No tenderness to palpation. No rebound or guarding. No masses. RECTAL: Deferred. MUSCULOSKELETAL: Atraumatic. Chest examination reveals no tenderness. The back is symmetrical on inspection without obvious abnormality. No joint edema. Incision is intact however in the middle aspect there is clear, blood tinged fluid that is leaking out. LOWER EXTREMITIES: Calves are equal size bilaterally and non-tender. No edema. No discoloration. NEURO: Normal sensorium. No sensory or motor deficits noted. SKIN: No rash or jaundice noted. EMERGENCY DEPARTMENT COURSE: 1200: Past medical records reviewed. The patient was evaluated in room C12B, and a complete history and physical examination were performed. 1206: I discussed the patient's case with Dr. Yoselin Salazar & Cheri Spinal Surgeon. He will further evaluate the patient. 1214: I updated the patient at this time. She would like pain medication. MEDICAL DECISION MAKING: Patient presented to the emergency department with fluid leaking from her spinal incision. Differential includes spinal fluid leak, seroma, wound infection, dehiscence as well as others. Physical examination was concerning for possible spinal fluid leak. The patient did note having a headache with sitting upright or trying to stand. This would support that as well. A consultation was made with her spine surgeon. He will admit the patient. She did have a slight leukocytosis on CBC. She was hydrated and given Dilaudid and Zofran for symptom control. The patient was admitted for further management. IMPRESSION: CSF leak PLAN: Being Evaluated by Surgeon The scribe's documentation has been prepared under my direction and personally reviewed by me in its entirety. I confirm that the note above accurately reflects all work, treatment, procedures, and medical decision making performed by me. Impression & Plan CSF leak Past Med/Surg History Medical History Atrial fibrillation Degenerative disc disease GERD (gastroesophageal reflux disease) History of shingles Hx of myocardial infarction Was not feeling well and was sent to [facility] by PCP. Did cardiac cath with no stents. Hyperlipidemia Hypertension Osteoarthritis Surgical History History of back surgery x2 History of cardiac cath 09/2017 - [facility] History of carpal tunnel release of both wrists History of cataract surgery History of partial hysterectomy right ovary not removed Hx of arthroscopic knee surgery right Hx of foot surgery x3 procedures at same surgery - foot, heel , lower tib/fib Nausea and vomiting after administration of anesthetic agent Family History Mother Family history of diabetes mellitus Other FHx: brain cancer FHx: breast cancer Social History Preferred Language: Greek Communication Ability: Effective Beliefs That Will Affect Care: None marital status: Current Living Situation: Spouse Feels Safe at Home: Yes Smoking Status: Never smoker Hx Alcohol Use: Yes Alcohol type: wine Hx Substance Use: No Results & Data Vital Signs Vital Signs - 24 hr 05/31/18 11:16 05/31/18 12:08 05/31/18 12:35 Temperature 36.9 C Temperature Source Oral Sepsis Recent Fever Within 48 Hours No Sepsis Action Taken by Nursing No Action Required Pulse Rate 93 H Pulse Rate [Left Finger] Pulse Rate from SpO2 Sensor Pulse Rhythm [Left Finger] Pulse Strength [Left Finger] Respiratory Rate 20 Respiratory Effort / Characteristics Respiratory Depth Respiratory Pattern Blood Pressure 151/82 H Blood Pressure [Right Arm] Blood Pressure Mean 105 Blood Pressure Mean [Right Arm] Blood Pressure Position Sitting Blood Pressure Position [Right Arm] Pulse Oximetry 98 95 95 Oxygen Delivery Method Room Air Room Air 05/31/18 12:38 05/31/18 12:40 05/31/18 12:50 Temperature Temperature Source Sepsis Recent Fever Within 48 Hours Sepsis Action Taken by Nursing Pulse Rate 74 77 86 Pulse Rate [Left Finger] Pulse Rate from SpO2 Sensor 76 77 82 Pulse Rhythm [Left Finger] Pulse Strength [Left Finger] Respiratory Rate 14 16 18 Respiratory Effort / Characteristics Respiratory Depth Respiratory Pattern Blood Pressure Blood Pressure [Right Arm] Blood Pressure Mean Blood Pressure Mean [Right Arm] Blood Pressure Position Blood Pressure Position [Right Arm] Pulse Oximetry 99 98 98 Oxygen Delivery Method 05/31/18 13:00 05/31/18 13:01 05/31/18 13:10 Temperature Temperature Source Sepsis Recent Fever Within 48 Hours Sepsis Action Taken by Nursing Pulse Rate 73 76 72 Pulse Rate [Left Finger] Pulse Rate from SpO2 Sensor 72 76 70 Pulse Rhythm [Left Finger] Pulse Strength [Left Finger] Respiratory Rate 15 19 14 Respiratory Effort / Characteristics Respiratory Depth Respiratory Pattern Blood Pressure 112/68 Blood Pressure [Right Arm] Blood Pressure Mean 82 Blood Pressure Mean [Right Arm] Blood Pressure Position Blood Pressure Position [Right Arm] Pulse Oximetry 95 96 99 Oxygen Delivery Method 05/31/18 13:20 05/31/18 13:30 05/31/18 13:40 Temperature Temperature Source Sepsis Recent Fever Within 48 Hours Sepsis Action Taken by Nursing Pulse Rate 70 72 71 Pulse Rate [Left Finger] Pulse Rate from SpO2 Sensor 70 70 71 Pulse Rhythm [Left Finger] Pulse Strength [Left Finger] Respiratory Rate 19 9 L 17 Respiratory Effort / Characteristics Respiratory Depth Respiratory Pattern Blood Pressure Blood Pressure [Right Arm] Blood Pressure Mean Blood Pressure Mean [Right Arm] Blood Pressure Position Blood Pressure Position [Right Arm] Pulse Oximetry 96 96 97 Oxygen Delivery Method 05/31/18 13:50 05/31/18 15:19 Temperature 37.2 C Temperature Source Oral Sepsis Recent Fever Within 48 Hours Sepsis Action Taken by Nursing Pulse Rate Pulse Rate [Left Finger] 92 H Pulse Rate from SpO2 Sensor Pulse Rhythm [Left Finger] Regular Pulse Strength [Left Finger] Normal Respiratory Rate 16 Respiratory Effort / Characteristics Non-Labored Spontaneous Respiratory Depth Normal Respiratory Pattern Regular Blood Pressure 119/82 Blood Pressure [Right Arm] 120/76 Blood Pressure Mean 94 Blood Pressure Mean [Right Arm] 90 Blood Pressure Position Blood Pressure Position [Right Arm] Lying Pulse Oximetry 94 Oxygen Delivery Method Room Air Home Medications Current Medication List: was personally reviewed by me Laboratory Data Attestation: I reviewed the patient's lab results. Result diagrams: 05/31/18 12:28 Lab Results 05/31/18 Range/Units 12:28 WBC 12.78 H (4.8-10.8) K/uL RBC 3.70 L (4.2-5.4) M/uL Hgb 11.0 L (12.0-16.0) g/dL Hct 32.8 L (37-47) % MCV 88.6 (80-100) fL MCH 29.7 (25-34) pg MCHC 33.5 (32-36) g/dL RDW Std Deviation 46.3 (36.4-46.3) fL RDW Coeff of Naveed 14.3 (11.5-14.5) % Plt Count 258 (130-400) K/uL MPV 10.1 (7.4-10.4) fL Immature Gran % (Auto) 0.5 % Neut % (Auto) 70.2 % Lymph % (Auto) 19.7 % [place] % (Auto) 9.5 % Eos % (Auto) 0.0 % Baso % (Auto) 0.1 % Immature Gran # (Auto) 0.06 H (0.00-0.02) K/uL Neut # (Auto) 8.98 H (1.4-6.5) K/uL Lymph # (Auto) 2.52 (1.2-3.4) K/uL [place] # (Auto) 1.21 H (0.11-0.59) K/uL Eos # (Auto) 0.00 (0-0.5) K/uL Baso # (Auto) 0.01 (0-0.2) K/uL Administered Medications Sodium Chloride (Nss 1000ml) 1,000 mls @ 125 mls/hr IV .Q8H STA Stop: 05/31/18 20:07 Last Admin: 05/31/18 12:30 Dose: 125 mls/hr Documented by: [id number] Oxycodone/Acetaminophen (Percocet 5mg/325mg) 1 tab PO Q4H PRN PRN Reason: MODERATE Pain 4,5,6 Stop: 06/14/18 13:08 Last Admin: 05/31/18 15:46 Dose: 1 tab Documented by: [id number] Discontinued Medications Hydromorphone HCl (Dilaudid) 0.5 mg IV Q15M PRN PRN Reason: Pain Stop: 06/14/18 12:14 Last Admin: 05/31/18 12:57 Dose: 0.5 mg Documented by: [id number] Ondansetron HCl (Zofran) 4 mg IV NOW STA Stop: 05/31/18 12:16 Last Admin: 05/31/18 12:57 Dose: 4 mg Documented by: [id number] Blood Pressure Blood Pressure Findings: Elevated blood pressure Blood Pressure Disposition: further management by hospitalist Discharge Plan Visit Data *Final* Discharge Date/Time: 05/31/18 13:42 Chief Complaint: Wound Stated Complaint: DRAINAGE FROM INCISION SITE, POST OP 05/28 ED Provider: Stone Marley Discharge Problem: CSF leak Patient Disposition: Admitted As Inpatient Discharge Instructions Interventions: ED Discharge Assessment Last Done: 05/31/18 13:42 The scribe's documentation has been prepared under my direction and personally reviewed by me in its entirety. I confirm that the note above accurately reflects all work, treatment, procedures, and medical decision making performed by me.
[2018-05-31] MEDS: dexAMETHasone 6 MG in SYRINGE 0 ML IV SCH (17:40)
[2018-05-31] MEDS: LACTATED RINGER'S 1,000 ML IV SCH (19:57)
[2018-05-31] MEDS: DOCUSATE SODIUM 100 MG CAP PO SCH (20:01)
[2018-06-01] MEDS: dexAMETHasone 6 MG in SYRINGE 0 ML IV SCH ×2 (00:09→08:38)
[2018-06-01] MEDS: LACTATED RINGER'S 1,000 ML IV SCH ×3 (04:03→22:36)
[2018-06-01] MEDS: DOCUSATE SODIUM 100 MG CAP PO SCH ×2 (08:38→22:24)
[2018-06-01] MEDS: OXYCODONE/ACETAMINOPHEN 5mg/325mg TAB PO PRN (08:41)
--- NOTE | 2018-06-01 13:55 | Anesthesiology Consultation ---
Date of Service June 01, 2018 Assessment & Plan (1) Encounter for pre-operative examination: Chart Review Chart Review: Acceptable Risk for Surgery and Patient NOT seen in Pre Admission Testing Consults Requested none NPO Date Last Intake of Fluids: 06/01/18 Time Last Intake of Fluids: 17:30 Last Intake of Fluids Comment: sips with meds today at 0930 Date Last Intake of Solids: 06/01/18 Time Last Intake of Solids: 17:30 History Surgery Operation Date: 06/01/18 08:20 Proposed Procedures p Wound Exploration of Lumbar Spine, Repair of Dura - Stone Wyatt DO Height/Weight Height: 5 ft 1 in Weight: 81.647 kg Allergies Allergy/AdvReac Type Severity Reaction Status Date / Time bee pollen Allergy Severe hives, Verified 05/31/18 11:56 throat swelling honey Allergy Severe throat Verified 05/31/18 11:56 swells;wheezing moxifloxacin AdvReac Intermediate general Verified 05/31/18 11:56 "knocks me out" Medications Home Medications Medication Instructions Recorded Confirmed Last Taken Eliquis 5 mg PO BID 05/07/18 05/31/18 05/30/18 acetaminophen 1,000 mg PO Q6H PRN 05/07/18 05/31/18 05/27/18 20:30 aspirin [Aspir-81] 81 mg PO QAM 05/07/18 05/31/18 05/31/18 atorvastatin 40 mg PO 3XWK 05/07/18 05/31/18 05/31/18 coenzyme Q10 [CoQ-10] 100 mg PO HS 05/07/18 05/31/18 05/30/18 diltiazem HCl [Cartia XT] 120 mg PO HS 05/07/18 05/31/18 05/30/18 esomeprazole magnesium 20 mg PO QAM 05/07/18 05/31/18 05/31/18 folic acid 800 mcg PO QAM 05/07/18 05/31/18 05/31/18 lisinopril-hydrochlorothiazide 1 tab PO QAM 05/07/18 05/31/18 05/31/18 tramadol 50 mg PO Q12H PRN 05/07/18 05/31/18 05/25/18 16:00 hydrocodone-acetaminophen [[place]] 1 tab PO Q6H PRN #40 tab 05/30/18 05/31/18 05/31/18 06:00 Active Medications Generic Name Dose Route Start Last Admin Trade Name Freq PRN Reason Stop Dose Admin Docusate Sodium 100 mg 05/31/18 21:00 06/01/18 08:38 Colace PO 06/30/18 20:59 100 mg BID CHRIST Administration Oxycodone/Acetaminophen 1 tab 05/31/18 13:09 06/01/18 08:41 Percocet 5mg/325mg PO 06/14/18 13:08 1 tab Q4H PRN Administration MODERATE Pain 4,5,6 Past Medical History Medical History Atrial fibrillation Degenerative disc disease GERD (gastroesophageal reflux disease) History of shingles Hx of myocardial infarction Was not feeling well and was sent to [facility] by PCP. Did cardiac cath with no stents. September 2017. Hyperlipidemia Hypertension Osteoarthritis Past Family History Family History Mother Family history of diabetes mellitus Other FHx: brain cancer FHx: breast cancer Past Surgical History Surgical History History of back surgery x2. Most recent 05/28/2018. GETA. No issues. History of cardiac cath 09/2017 - [facility] History of carpal tunnel release of both wrists History of cataract surgery History of partial hysterectomy right ovary not removed Hx of arthroscopic knee surgery right Hx of foot surgery x3 procedures at same surgery - foot, heel , lower tib/fib Nausea and vomiting after administration of anesthetic agent Social History Smoking Status: Never smoker Hx Alcohol Use: Yes Alcohol type: wine alcohol intake frequency: holidays/special occasions only Hx Substance Use: No Physical Exam Vital Signs Last Vital Signs Temp 37.2 C 06/01/18 13:45 Pulse 107 H 06/01/18 13:45 Resp 18 06/01/18 13:45 BP 168/75 H 06/01/18 13:45 Pulse Ox 94 06/01/18 13:45 Testing Electrocardiogram Date: 01/08/18 Electrocardiogram Date: 01/08/18 Findings: + NSR @ (91) Left atrial enlargement. Poor R wave progression - may be secondary to pulmonary disease consider old anterior infarct. Low voltage with rightward P-axis and rotation- possible pulmonary disease. Chest X-Ray Date: 05/12/18 TWO VIEW CHEST CLINICAL HISTORY: Preoperative examination. FINDINGS: PA and lateral chest radiographs are compared to study dated 03/26/2016. The cardiomediastinal silhouette is unremarkable, noting atherosclerotic calcification of the thoracic aorta. Chronic interstitial thicke monica is similar to previous. The lungs and pleural spaces are clear. There is no pneumothorax. The skeletal structures are osteopenic. The bony thorax appears intact. Fusion hardware is partially imaged in the upper lumbar spine. IMPRESSION: No active disease in the chest. Cardiac Catheterization Date: 10/03/17 Findings: + normal Intervention: + none IMPRESSION AND PLAN: 1. Moderate mid LAD stenosis with borderline first diagonal branch proximal stenosis. 2. Normal left ventricular systolic function. COMPLICATIONS: 1. None. RECOMMENDATIONS: 1. Medical therapy and aggressive risk factor modification. Laboratory Results 05/31/18 12:28
[2018-06-01] MEDS ORDERED: GELATIN SPONGE SZ 100 ONE ×2 (14:08→19:41)
[2018-06-01] MEDS ORDERED: VANCOMYCIN HCL 1000MG/20ML VIAL ONE ×2 (14:08→19:38)
[2018-06-01] MEDS ORDERED: BUPIVACAINE/EPINEPHRINE 0.5% MPF 1:200,000 30 ML VIAL ONE ×2 (14:09→19:39)
[2018-06-01] MEDS ORDERED: BACITRACIN INJ 50,000 UNIT VIAL ONE (14:09)
[2018-06-01] MEDS ORDERED: THROMBIN FOR SOLN 20000 UNIT KIT ONE ×2 (14:09→19:38)
[2018-06-01] MEDS ORDERED: ROCURONIUM BROMIDE 10 MG/ML 5 ML VIAL ONE (14:12)
[2018-06-01] MEDS ORDERED: fentaNYL citrate 100 MCG/2 ML VIAL ONE ×4 (14:12→21:14)
[2018-06-01] MEDS ORDERED: PROPOFOL IV EMULSION 10 MG/ML 20 ML VIAL IV ONE ×2 (14:12→19:38)
[2018-06-01] MEDS ORDERED: MIDAZOLAM HCL 1 MG/ML 2ML VIAL ONE (14:25)
--- NOTE | 2018-06-01 14:25 | History & Physical Bridge Note ---
Date of Service June 01, 2018 History & Physical Bridge Note I have examined the patient, reviewed the History & Physical and in the interval since the performance of the History & Physical I have noted the following changes of clinical significance: no changes noted; UPCOMING OPERATIVE PROCEDURE. : REPAIR OF DURA LUMBAR SPINE
[2018-06-01] MEDS ORDERED: CEFAZOLIN 2000MG 2,000 MG/15 ML SYR IV ONE (14:42)
[2018-06-01] MEDS ORDERED: CEFAZOLIN 2,000 MG/15 ML IV PUSH IV ONE (14:42)
[2018-06-01] MEDS ORDERED: ePHEDrine sulfate 50 MG/ML AMP IV PRN ×2 (14:45→19:13)
[2018-06-01] MEDS ORDERED: ATROPINE SULFATE 0.1 MG/ML 10ML SYR IV PRN ×2 (14:45→19:13)
--- NOTE | 2018-06-01 16:12 | Post Operative Brief Note ---
Immediate Post Op Note v1 Date of Surgery June 01, 2018 Pre & Post Diagnosis Operation Date: 06/01/18 08:20 Pre-Op Diagnosis: SPINAL FLUID LEAK, lumbar spine Post-Op Diagnosis: SPINAL FLUID LEAK, lumbar spine Procedure Operation Date: 06/01/18 08:20 Actual Procedures p Repair of Spinal Fluid Leak, Lumbar Spine(Not Applicable) - Stone Wyatt DO Surgeon Stone Wyatt DO Medical Office Clerk evelio Estimated Blood Loss 100 Findings Consistent with Post-Op Diagnosis Drains Hahn Catheter (hahn catheter present upon arrive to OR#3; to remain post op. patient states had it before coming down to surgery.)
[2018-06-01] MEDS ORDERED: GLYCOPYRROLATE 0.2 MG/ML VIAL ONE (16:30)
[2018-06-01] MEDS ORDERED: NEOSTIGMINE METHYLSULFATE 5 MG/5 ML SYR ONE (16:30)
[2018-06-01] MEDS: HYDROmorphone INJ 1 MG/ML SYRINGE IV PRN ×6 (16:51→18:00)
--- NOTE | 2018-06-01 17:02 | Anesthesiology Progress Note ---
Date of Service June 01, 2018 Anesthesia Post Procedure Vital Signs Vital Signs: Temp Pulse Pulse Resp BP Pulse Ox Pulse Ox 06/01/18 16:18 36.4 C L 109 H 18 151/94 H 99 06/01/18 13:45 37.2 C 107 H 18 168/75 H 94 06/01/18 09:38 78 06/01/18 08:29 36.6 C 19 162/68 H 93 06/01/18 07:59 95 05/31/18 23:16 37.3 C 83 18 126/75 95 Pain Intensity Medial Back: Pain Intensity: 0 Notes Mental Status: alert / awake / arousable Patient Amnestic to Procedure: Yes Nausea / Vomiting: adequately controlled Pain: adequately controlled Airway Patency, RR, SpO2: stable & adequate BP & HR: stable & adequate Hydration State: stable & adequate Anesthetic Complications: no major complications apparent
[2018-06-01] MEDS ORDERED: KETOROLAC 30 MG/ML VIAL ONE (18:06)
--- NOTE | 2018-06-01 18:56 | CT Scan Report ---
LUMBAR SPINE CT CT DOSE: 790.16 mGy.cm HISTORY: radiculapathy;pain post op lumbar spine dura repai TECHNIQUE: Multiaxial CT images of the lumbar spine were performed and reformatted in the sagittal an d coronal plane without the use of contrast. A dose lowering technique was utilized adhering to the principles of ALARA. COMPARISON: Lumbar spine CT 04/27/2018. FINDINGS: There is posterior decompression and fusion from T12 through S1 with pedicle screws and lee s. The hardware appears intact. No acute fracture or subluxation within the lumbar spine. Gas and flu id at the laminectomy sites from the T12-L4 levels is likely due to the recent postoperative change. Evaluation of the central canal is essentially nondiagnostic due to the CT technique. There may be ma ss effect of the fluid at the laminectomy sites along the thecal sac at the L1-L2 level. However, thi s is not well evaluated due to the metallic artifact. Paravertebral soft tissues are unremarkable. Th e sacrum appears intact. IMPRESSION: 1. Posterior decompression and fusion from T12 through S1 with pedicle screws and rods. The hardware appears intact. 2. Gas and fluid at the laminectomy sites consistent with the recent postoperative change. 3. There may be mass effect of the fluid at the laminectomy sites along the thecal sac at the L1-L2 l evel. However, this is not well evaluated due to the metallic artifact and CT technique. Electronically signed by: Vaughn Velez M.D. 06/01/2018 6:54 PM
--- NOTE | 2018-06-01 19:01 | History & Physical Bridge Note ---
Date of Service June 01, 2018 History & Physical Bridge Note I have examined the patient, reviewed the History & Physical and in the interval since the performance of the History & Physical I have noted the following changes of clinical significance: EVACUATION OF HEMATOMA MASS EFFECT SPINAL CORD
--- NOTE | 2018-06-01 19:11 | Progress Note ---
Date of Service June 01, 2018 Subjective Called prior to disposition from PACU for increasing pain down L leg. She had no weakness in the leg, but significantly increasing pain that has been poorly responsive to narcotics in a circumfrential distribution down to the knee. Dr Wyatt was alerted and examined the patient, ordering a CT scan which revealed a compressive hematoma. He plans to return to the OR emergently. Results & Data Vital Signs (Past 12 Hours) Vital Signs Temp Pulse Resp BP Pulse Ox Pulse Ox 06/01/18 19:05 115 H 15 153/91 H 98 06/01/18 18:55 109 H 15 151/82 H 97 06/01/18 18:49 105 H 15 142/100 H 97 06/01/18 18:15 71 15 150/74 H 97 06/01/18 18:05 74 15 129/64 98 06/01/18 17:55 73 15 138/61 97 06/01/18 17:45 73 15 144/74 H 97 06/01/18 17:35 37.0 C 67 15 135/59 L 98 06/01/18 17:25 70 15 112/69 97 06/01/18 17:15 74 15 133/59 L 99 06/01/18 17:05 84 12 150/70 H 97 06/01/18 16:55 90 18 182/115 H 100 06/01/18 16:45 95 H 20 168/105 H 100 06/01/18 16:35 98 H 16 175/95 H 100 06/01/18 16:27 103 H 18 157/98 H 100 06/01/18 16:18 36.4 C L 109 H 18 151/94 H 99 06/01/18 13:45 37.2 C 107 H 18 168/75 H 94 06/01/18 09:38 78 06/01/18 08:29 36.6 C 19 162/68 H 93 06/01/18 07:59 95
[2018-06-01] MEDS ORDERED: fentaNYL citrate 100 MCG/2 ML VIAL IV PRN (19:13)
[2018-06-01] MEDS ORDERED: HYDROmorphone INJ 2 MG/ML SYR/VIAL IV PRN (19:13)
--- NOTE | 2018-06-01 19:13 | Anesthesiology Consultation ---
Date of Service June 01, 2018 Assessment & Plan (1) Encounter for pre-operative examination: Chart Review Chart Review: Acceptable Risk for Surgery Consults Requested none ASA [id number] Proposed Anesthesia Anesthesia Type: General Risk / Benefits Reviewed With: PT / POA / Parent / Guardian, Accepts Plan and Informed Consent Obtained NPO Date Last Intake of Fluids: 06/01/18 Time Last Intake of Fluids: 17:30 Last Intake of Fluids Comment: sips with meds today at 0930 Date Last Intake of Solids: 06/01/18 Time Last Intake of Solids: 17:30 History Surgery Operation Date: 06/01/18 08:20 Proposed Procedures p Wound Exploration of Lumbar Spine, Repair of Dura - Stone Wyatt DO Operation Date: 06/01/18 19:00 Proposed Procedures p Laminectomy/Foraminotomy - Stone Wyatt DO Height/Weight Height: 5 ft 1 in Weight: 81.647 kg Allergies Allergy/AdvReac Type Severity Reaction Status Date / Time bee pollen Allergy Severe hives, Verified 05/31/18 11:56 throat swelling honey Allergy Severe throat Verified 05/31/18 11:56 swells;wheezing moxifloxacin AdvReac Intermediate general Verified 05/31/18 11:56 "knocks me out" Medications Home Medications Medication Instructions Recorded Confirmed Last Taken Eliquis 5 mg PO BID 05/07/18 05/31/18 05/30/18 acetaminophen 1,000 mg PO Q6H PRN 05/07/18 05/31/18 05/27/18 20:30 aspirin [Aspir-81] 81 mg PO QAM 05/07/18 05/31/18 05/31/18 atorvastatin 40 mg PO 3XWK 05/07/18 05/31/18 05/31/18 coenzyme Q10 [CoQ-10] 100 mg PO HS 05/07/18 05/31/18 05/30/18 diltiazem HCl [Cartia XT] 120 mg PO HS 05/07/18 05/31/18 05/30/18 esomeprazole magnesium 20 mg PO QAM 05/07/18 05/31/18 05/31/18 folic acid 800 mcg PO QAM 05/07/18 05/31/18 05/31/18 lisinopril-hydrochlorothiazide 1 tab PO QAM 05/07/18 05/31/18 05/31/18 tramadol 50 mg PO Q12H PRN 05/07/18 05/31/18 05/25/18 16:00 hydrocodone-acetaminophen [[place]] 1 tab PO Q6H PRN #40 tab 05/30/18 05/31/18 05/31/18 06:00 Active Medications Generic Name Dose Route Start Last Admin Trade Name Freq PRN Reason Stop Dose Admin Docusate Sodium 100 mg 05/31/18 21:00 06/01/18 08:38 Colace PO 06/30/18 20:59 100 mg BID CHRIST Administration Hydromorphone HCl 0.25 mg 06/01/18 14:45 06/01/18 18:00 Dilaudid IV 06/01/18 19:45 0.25 mg Q5M PRN Administration PACU Use Only-Pain Oxycodone/Acetaminophen 1 tab 05/31/18 13:09 06/01/18 08:41 Percocet 5mg/325mg PO 06/14/18 13:08 1 tab Q4H PRN Administration MODERATE Pain 4,5,6 Past Medical History Medical History Atrial fibrillation Degenerative disc disease GERD (gastroesophageal reflux disease) History of shingles Hx of myocardial infarction Was not feeling well and was sent to [facility] by PCP. Did cardiac cath with no stents. September 2017. Hyperlipidemia Hypertension Osteoarthritis Past Family History Family History Mother Family history of diabetes mellitus Other FHx: brain cancer FHx: breast cancer Past Surgical History Surgical History History of back surgery x2. Most recent 05/28/2018. GETA. No issues. History of cardiac cath 09/[address] [facility] History of carpal tunnel release of both wrists History of cataract surgery History of partial hysterectomy right ovary not removed Hx of arthroscopic knee surgery right Hx of foot surgery x3 procedures at same surgery - foot, heel , lower tib/fib Nausea and vomiting after administration of anesthetic agent Social History Smoking Status: Never smoker Hx Alcohol Use: Yes Alcohol type: wine alcohol intake frequency: holidays/special occasions only Hx Substance Use: No Physical Exam Vital Signs Last Vital Signs Temp 37.0 C 06/01/18 17:35 Pulse 115 H 06/01/18 19:05 Resp 15 06/01/18 19:05 BP 153/91 H 06/01/18 19:05 Pulse Ox 98 06/01/18 19:05 Constitutional + obese ENMT Mouth: no TMJ abnormality Thyromental Distance: > or= 3.5 Finger Breadths Mallampati Class: II Neck normal visual inspection Respiratory normal respiratory effort Cardiovascular Rate/Rhythm: regular rate and regular rhythm Neurologic moves all extremities (pain L lower extremity to above knee.) Psychiatric Orientation: alert Testing Laboratory Results 05/31/18 12:28
[2018-06-01] MEDS ORDERED: fentaNYL citrate 100 MCG/2 ML VIAL IV STA (19:22)
[2018-06-01] MEDS ORDERED: LIDOCAINE HCL 2% 2 ML VIAL/AMP(20MG/ML) INFIL ONE (19:38)
[2018-06-01] MEDS ORDERED: SUCCINYLCHOLINE CHLORIDE 20 MG/ML 10 ML VIAL ONE (19:38)
[2018-06-01] MEDS ORDERED: ONDANSETRON INJ 2 MG/ML 2 ML VIAL ONE (20:27)
[2018-06-01] MEDS ORDERED: PHENYLEPHRINE HCL 10 MG/ML VIAL ONE (20:27)
[2018-06-01] MEDS ORDERED: FLOSEAL HEMOSTATIC MATRIX 10ML TOP ONE (20:29)
--- NOTE | 2018-06-01 20:54 | Post Operative Brief Note ---
Immediate Post Op Note v1 Date of Surgery June 01, 2018 Pre & Post Diagnosis Operation Date: 06/01/18 08:20 Pre-Op Diagnosis: SPINAL FLUID LEAK, lumbar spine Post-Op Diagnosis: SPINAL FLUID LEAK, lumbar spine Operation Date: 06/01/18 19:00 Pre-Op Diagnosis: Lumbar hematoma Post-Op Diagnosis: Lumbar hematoma Procedure Operation Date: 06/01/18 08:20 Actual Procedures p Repair of Spinal Fluid Leak, Lumbar Spine(Not Applicable) - Stone Wyatt DO Operation Date: 06/01/18 19:00 Actual Procedures p Evacuation of Lumbar Hematoma(Not Applicable) - Stone Wyatt DO Surgeon Stone Wyatt DO Pathology Laboratory Aide evelio Estimated Blood Loss 200 Findings Consistent with Post-Op Diagnosis Drains [place] Catheter and Hemovac Drain
[2018-06-01] MEDS ORDERED: METOPROLOL TARTRATE 1 MG/ML VIAL IV ONE (21:45)
[2018-06-01] MEDS ORDERED: ONDANSETRON INJ 2 MG/ML 2 ML VIAL IV PRN (22:19)
[2018-06-01] MEDS ORDERED: ACETAMINOPHEN 1,000 MG/100 ML VIAL IV PRN (22:19)
[2018-06-01] MEDS ORDERED: MAGNESIUM HYDROXIDE SUSP 30 ML UDC PO PRN (22:19)
[2018-06-01] MEDS ORDERED: HYDROmorphone INJ 1 MG/ML SYRINGE IV PRN ×2 (22:19)
[2018-06-01] MEDS ORDERED: APIXABAN 5 MG TABLET PO SCH (22:19)
--- NOTE | 2018-06-01 22:23 | Anesthesiology Progress Note ---
Date of Service June 01, 2018 Anesthesia Post Procedure Vital Signs Vital Signs: Temp Pulse Pulse Resp BP Pulse Ox Pulse Ox 06/01/18 21:55 95 H 20 133/91 97 06/01/18 21:45 37.0 C 121 H 20 128/83 99 06/01/18 21:35 109 H 21 129/76 100 06/01/18 21:25 112 H 21 135/81 98 06/01/18 21:15 123 H 18 137/80 99 06/01/18 21:05 113 H 20 105/66 100 06/01/18 20:59 36.4 C L 104 H 20 106/78 99 06/01/18 19:25 96 H 20 151/85 H 95 06/01/18 19:15 103 H 15 148/80 H 93 06/01/18 19:05 115 H 15 153/91 H 98 06/01/18 18:55 109 H 15 151/82 H 97 06/01/18 18:49 105 H 15 142/100 H 97 06/01/18 18:15 71 15 150/74 H 97 06/01/18 18:05 74 15 129/64 98 06/01/18 17:55 73 15 138/61 97 06/01/18 17:45 73 15 144/74 H 97 06/01/18 17:35 37.0 C 67 15 135/59 L 98 06/01/18 17:25 70 15 112/69 97 06/01/18 17:15 74 15 133/59 L 99 06/01/18 17:05 84 12 150/70 H 97 06/01/18 16:55 90 18 182/115 H 100 06/01/18 16:45 95 H 20 168/105 H 100 06/01/18 16:35 98 H 16 175/95 H 100 06/01/18 16:27 103 H 18 157/98 H 100 06/01/18 16:18 36.4 C L 109 H 18 151/94 H 99 06/01/18 13:45 37.2 C 107 H 18 168/75 H 94 06/01/18 09:38 78 06/01/18 08:29 36.6 C 19 162/68 H 93 06/01/18 07:59 95 05/31/18 23:16 37.3 C 83 18 126/75 95 Pain Intensity Medial Back: Pain Intensity: 2 Notes Mental Status: alert / awake / arousable Patient Amnestic to Procedure: Yes Nausea / Vomiting: adequately controlled Pain: adequately controlled Airway Patency, RR, SpO2: stable & adequate BP & HR: stable & adequate Hydration State: stable & adequate Anesthetic Complications: no major complications apparent Notes: Leg pain significantly improved after repeat operation/evac hematoma.
[2018-06-01] MEDS ORDERED: METOPROLOL TARTRATE 1 MG/ML VIAL IV STA (22:24)
[2018-06-01] MEDS: CEFAZOLIN 2000MG 2,000 MG/15 ML SYR IV SCH (23:27)
[2018-06-02] MEDS: dilTIAZem HCL 120 MG CAPCR PO SCH ×2 (00:27→21:12)
[2018-06-02] MEDS: OXYCODONE HCL IR 5 MG TAB (IMMEDIATE RELEASE) PO PRN ×4 (00:29→21:21)
[2018-06-02] MEDS: CEFAZOLIN 2000MG 2,000 MG/15 ML SYR IV SCH ×2 (05:53→14:24)
--- NOTE | 2018-06-02 07:56 | Operative Report ---
DATE OF OPERATION: 06/01/2018 PREOPERATIVE DIAGNOSIS: Spinal fluid leak lumbar spine. POSTOPERATIVE DIAGNOSIS: Spinal fluid leak lumbar spine. PROCEDURE: Included a repair of lumbar spinal fluid leak lumbar spine under direct repair plus DuraSeal patch of the area. SURGEON: Stone Wyatt DO SHUTTLE REPAIRER: Brian Murphy PA-C. COMPLICATIONS: Zero. BLOOD LOSS: 100 mL. ANESTHETIC: General. DESCRIPTION OF PROCEDURE: The patient was taken to the operating room and general intubated anesthetic provided to the patient. We scrubbed her first with Betadine, prepped her with ChloraPrep. We used for same skin incision, took out the sutures recently placed, came down the fascia where there was obvious spinal fluid leak through the fascia to itself. We dissected free, put in a deep self-retaining retractor, we could see perfectly. Around the T12-L1 area on the left hand side, we was able to see an obvious laceration. I could not really tell for sure the mechanism or piece of bone or spicule of bone seen to be eroding into the canal, but anyway it was located found, in total was approximately 6 mm in length. This was surgically repaired with Nurolon suture x4. We did a Valsalva, it was secure. There was no fluid leak at that time. We then irrigated thoroughly and debrided any soft tissue. We used the patch over the dura itself and some Gelfoam followed by more and then more Gelfoam. We closed without a drain with #1 Vicryl suture, watertight fashion, 2-0 in subcuticular and interrupted 3-0 nylon on the skin. Sterile dressings applied. The patient returned supine, extubated to PACU stable. There were no apparent interoperative medical or orthopedic spinal complications or anesthetic complications. I attest to the content of the Intraoperative Record and any orders documented therein. Any exception s are noted below.
[2018-06-02 08:17] LABS: Hematocrit (blood only) 25.9 % (37-47); Hemoglobin 8.7 g/dL (12.0-16.0); Mean Corpuscular Hgb Conc 33.6 g/dL (32-36); Mean Corpuscular Volume 88.1 fL (80-100); Mean Platelet Volume 9.5 fL (7.4-10.4); Platelet Count 248 K/uL (130-400); RDW Coefficient of Variation 14.1 % (11.5-14.5); RDW Standard Deviation 45.3 fL (36.4-46.3); Red Blood Count 2.94 M/uL (4.2-5.4); White Blood Count 13.98 K/uL (4.8-10.8)
[2018-06-02] MEDS: LACTATED RINGER'S 1,000 ML IV SCH (08:28)
[2018-06-02] MEDS: ASPIRIN 81 MG ECTAB PO SCH (08:29)
[2018-06-02] MEDS: PANTOprazole 40 MG TAB PO SCH (08:29)
[2018-06-02] MEDS: LISINOPRIL/HCTZ 20/12.5MG 1 TAB TAB PO SCH (08:29)
[2018-06-02] MEDS ORDERED: LACTATED RINGER'S 1,000 ML IV SCH (08:45)
[2018-06-02 08:49] LABS: BUN Creatinine Ratio 25.7 (10-20); Calcium 8.4 mg/dl (8.5-10.1); Creatinine Clr Calc Pharmacy 59.2 ml/min; Est GFR (African American) 82.3; Magnesium 2.3 mg/dl (1.8-2.4); Potassium 3.7 mmol/L (3.5-5.1)
[2018-06-02] MEDS: DOCUSATE SODIUM/SENNA 50/8.6MG TAB PO SCH ×2 (11:03→21:21)
--- NOTE | 2018-06-02 13:02 | Hospitalist Consultation ---
Date of Consultation June 02, 2018 Assessment & Plan (1) CSF leak: - S/p repair of lumbar spinal fluid leak on 06/01, POD#1. - Also developed compressive hematoma following procedure -- s/p repair of hematoma on 06/01, POD#1. - Pain control per primary team. - Holding home Eliquis in setting of bleed, recent procedure. (2) Back pain: - S/p spinal procedure on 05/28/18; presented for CSF leak, see above. - Primary management per ortho team. (3) Constipation: - Last BM was prior to surgery last week. - Start Senokot S BID scheduled with Miralax prn. - Consider KUB to rule out obstruction vs. ileus. (4) Acute anemia: - Hgb trending down in setting of acute blood loss from procedure, hematoma and IV fluids. - Hgb was 8.7 this morning; will repeat level at 17:00. - Transfuse for hgb <8. (5) A-fib: - Paroxsymal A. fib, currently in NSR on exam. - Continue home Cardizem as prescribed. - Holding home Eliquis in setting of acute bleed. (6) GERD (gastroesophageal reflux disease): - PPI qAM. (7) History of myocardial infarction: - S/p cardiac cath at [facility] in September 2017; showed moderate mid LAD stenosis with borderline first diagonal branch proximal stenosis. - Continue statin, aspirin as prescribed. (8) HLD (hyperlipidemia): - Continue statin as prescribed. (9) HTN (hypertension): - Continue home HCTZ/Lisinopril as prescribed. (10) DVT prophylaxis: - Holding Eliquis due to recent hematoma and procedure. Dispo: Med/surg; will continue to follow. Supervising Physician Co-Signing Physician Notes Attending Attestation - Chart reviewed, care plan d/w APARNA Palm. I agree w/ the angela components of her documentation. 73yo female with CAD, HTN, hyperlipidemia, a.fib - underwent lumbar decompression/fusion on 05/28/[address] Wyatt. Developed post-op CSF leak. Now she is POD #1 s/p repair of CSF leak; also POD#1 s/p evacuation of hematoma as well. Our team was asked to perform post-op medical management. Patient with acute blood loss anemia. Will need repeat CBC and BMP tomorrow AM. Cont to hold eliquis. Despite CAD history no ischemic symptoms at this time. In light of CAD would Tx if Hb is <8 rather than using 7 as the threshold. Thank you for the consult. Alexis Galdamez MD History of Present Illness Reason for Consultation: Medical Management Attending Physician: Stone Wyatt DO History of Present Illness Mrs. Hillman is a 73 year old female with past medical history of A. fib, DJD, GERD, [place], HLD, HTN, Osteoarthritis who presented for a direct repair of lumbar spinal fluid leak. Pt. is status post spinal procedure on 05/28/18. She presented with a spinal headache following surgery; pt. required procedure for repair of fluid leak on 06/01/18. She developed left leg pain following surgery and had a compressive hematoma on CT of L-spine. Pt. returned to the OR for evacuation of lumbar hematoma. She is doing well overall today. Denies increased lumbar pain, has been improved with current pain medication. Last BM was on Friday prior to initial surgery. Is passing gas. Denies chest pain, SOB, urinary retention, abd pain, N/V. Allergies Allergy/AdvReac Type Severity Reaction Status Date / Time bee pollen Allergy Severe hives, Verified 05/31/18 11:56 throat swelling honey Allergy Severe throat Verified 05/31/18 11:56 swells;wheezing moxifloxacin AdvReac Intermediate general Verified 05/31/18 11:56 "knocks me out" Home Medications Home Medications Medication Instructions Recorded Confirmed Type Eliquis 5 mg PO BID 05/07/18 05/31/18 History acetaminophen 1,000 mg PO Q6H PRN 05/07/18 05/31/18 History aspirin [Aspir-81] 81 mg PO QAM 05/07/18 05/31/18 History atorvastatin 40 mg PO 3XWK 05/07/18 05/31/18 History coenzyme Q10 [CoQ-10] 100 mg PO HS 05/07/18 05/31/18 History diltiazem HCl [Cartia XT] 120 mg PO HS 05/07/18 05/31/18 History esomeprazole magnesium 20 mg PO QAM 05/07/18 05/31/18 History folic acid 800 mcg PO QAM 05/07/18 05/31/18 History lisinopril-hydrochlorothiazide 1 tab PO QAM 05/07/18 05/31/18 History tramadol 50 mg PO Q12H PRN 05/07/18 05/31/18 History hydrocodone-acetaminophen [[place]] 1 tab PO Q6H PRN #40 tab 05/30/18 05/31/18 Rx Patient History Medical History Atrial fibrillation Degenerative disc disease GERD (gastroesophageal reflux disease) History of shingles Hx of myocardial infarction Was not feeling well and was sent to [facility] by PCP. Did cardiac cath with no stents. September 2017. Hyperlipidemia Hypertension Osteoarthritis Surgical History History of back surgery x2. Most recent 05/28/2018. GETA. No issues. History of cardiac cath 09/2017 - [facility] History of carpal tunnel release of both wrists History of cataract surgery History of partial hysterectomy right ovary not removed Hx of arthroscopic knee surgery right Hx of foot surgery x3 procedures at same surgery - foot, heel , lower tib/fib Nausea and vomiting after administration of anesthetic agent Family History Mother Family history of diabetes mellitus Other FHx: brain cancer FHx: breast cancer Social History Preferred Language: Occitan Communication Ability: Effective Beliefs That Will Affect Care: None marital status: Current Living Situation: Spouse Other Information That Helps Us Care for You: No Feels Safe at Home: Yes Safety Concerns: Feels Safe At This Time Smoking Status: Never smoker Hx Alcohol Use: Yes Alcohol type: wine Hx Substance Use: No Review of Systems Review of Systems: All systems reviewed & are unremarkable except as noted in HPI & below Constitutional: no fever, no chills, no fatigue and no weakness Respiratory: no cough, no dyspnea and no wheezing Cardiovascular: no chest pain, no palpitations and no edema Gastrointestinal: + constipation; no abdominal pain, no nausea and no vomiting Genitourinary: no difficulty urinating Musculoskeletal: + back pain; no joint pain Integumentary: no non-healing lesions Hematologic / Lymphatic: no easy bleeding and no easy bruising Allergy / Immunological: no rash Physical Exam Physical Exam: General: Resting comfortably in no apparent distress; A&OX3 HEENT: NC/AT; PERRLA with EOMI; Burchard conjunctiva, MMM. Neck: Supple and nontender Cardiac: RRR Lungs: CTA bilaterally Abdomen: Bowel normoactive X 4; Nontender to palpation Extremities: Warm. No edema present Neuro: No focal weakness Skin: No rash; dressing in place over lumbar spine. Results & Data Vital Signs (Past 12 Hours) Vital Signs Temp Pulse Resp BP Pulse Ox Pulse Ox 06/02/18 09:20 94 06/02/18 08:20 37.9 C H 88 18 128/75 94 06/02/18 05:39 97 06/02/18 03:49 37 C 96 H 18 116/72 99 06/02/18 01:18 37.1 C 85 18 108/68 97 Laboratory Results 06/02/18 06/02/18 Range/Units 08:05 08:05 WBC 13.98 H (4.8-10.8) K/uL RBC 2.94 L (4.2-5.4) M/uL Hgb 8.7 L (12.0-16.0) g/dL Hct 25.9 L (37-47) % MCV 88.1 (80-100) fL MCH 29.6 (25-34) pg MCHC 33.6 (32-36) g/dL RDW Std Deviation 45.3 (36.4-46.3) fL RDW Coeff of Naveed 14.1 (11.5-14.5) % Plt Count 248 (130-400) K/uL MPV 9.5 (7.4-10.4) fL Sodium 138 (136-145) mmol/L Potassium 3.7 (3.5-5.1) mmol/L Chloride 105 (98-107) mmol/L Carbon Dioxide 26 (21-32) mmol/L Anion Gap 7.0 (3-11) BUN 21 H (7-18) mg/dl Creatinine 0.82 (0.6-1.2) mg/dl Est Cr Clr Drug Dosing 59.2 ml/min Est GFR ( Amer) 82.3 Est GFR (Non-Af Amer) 71.0 BUN/Creatinine Ratio 25.7 H (10-20) Glucose 137 H (70-99) mg/dl Calcium 8.4 L (8.5-10.1) mg/dl Magnesium 2.3 (1.8-2.4) mg/dl
--- NOTE | 2018-06-02 16:14 | Operative Report ---
DATE OF OPERATION: 06/01/2018 PREOPERATIVE DIAGNOSES: Hematoma formation and spinal cord compression thoracolumbar spine. POSTOPERATIVE DIAGNOSES: Hematoma formation and spinal cord compression thoracolumbar spine. INDICATIONS: The patient is a delightful patient I have known for 5-6 years. She has spinal fluid leak that I had repaired approximately 3 hours earlier than this procedure. She went to the Recovery Room. The repair was significant. I got a nice tight repair. I put on fibrin glue DuraSeal product. Because of the spinal fluid headache, I did not want to pull excess spinal fluid from the spinal canal, so I made the decision at the table to hold off on the Hemovac drains. All brannon were dry, felt the relative risk of bleeding was not as great as a recurrence of the spinal fluid leak. When the patient was returned to the Recovery Room, she had significant left lower extremity difficulty. She also had inguinal and labial pain. The pain then progressed over the next hour or so to involve the other extremity. I felt it was mostly neurologic in its evaluation and its problem. All her pulses were excellent. She had good coloration. She had 5/5 strength throughout. She had no motor deficit. It was significant pain. Slight loss of sensation. She also had pain tugging on the Aviles catheter. She had no loss of bowel function. Her abdomen was slightly sore and tender, some rebound tenderness, but it was not exquisitely tender. She had good bowel sounds. Heart and lungs are also normal. Mentation normal, alert, oriented. I felt that most of it was neurologic ____ from the surgery as that was the only incident she had and she was essentially pain free few hours or earlier. We sent her for a stat CT scan of the thoracolumbar spine. The good nurses in the PACU allow myself actually literally accompany the patient to CT scan, transfer it over. The CT findings were ambiguous. I was looking at the images myself. I looked at the radiologist's interpretation as well and went over with the radiologist. It was not truly evident to him that there was any type of cord compression, but what I was able to ascertain through careful looking was I felt that there was a hematoma on the spine. In fact, it was the DuraSeal product which is the fibrin glue type product to prevent a spinal fluid headache that was resting on the spinal canal. I made the decision immediately to take her back to the Operating Room. We mobilized the operating suite. Anesthesia kept her n.p.o., took her almost directly back from CAT scan to PACU. Consents were signed. was involved and then we took her back to Operating Room floor. DESCRIPTION OF PROCEDURE: The patient was placed supine, prepped and draped sterile. We took out the old suture line that was just placed a few hours earlier. We evacuated the hematoma. When I got down to the spinal elements, I felt that the fibrin glue product was compressing the spinal canal, roughly the area of T12, L1, L2. We carefully took off this fibrin glue product. I explored my suture repair of the dura. I thought it was fairly water tight. We did another Valsalva. There was no spinal fluid leak. I then progressed with the laminectomy slightly proximal to give the spinal cord a little more room for expansion. I felt that the spinal cord had come back to appropriate size. I also did a foraminotomy, which would more likely be the L1 nerve root on the left hand side. The right hand side was untouched. The rest of the spinal elements were satisfactory. There was no breakage of hardware or any other signs of cord compression. We irrigated out the hematoma. I placed just a small piece of Gelfoam over the dura. I did not go back with the DuraSeal product. I placed 2 drains deep to the wound. These were not sewn in, but close over ____ watertight fashion. The subcuticular layer was closed in watertight fashion. The skin was closed with 3-0 nylon. The drains were activated. They were compressed. They were able to pull any type of blood. There was not that much blood coming out of the drains. Sterile dressings were applied. The patient returned supine to PACU stable. PACU in this case was in the Intensive Care Unit, room number 1. When the patient was aroused, she had immediate improvement of her pain response. She remained alert, oriented. We spoke in length with the and we were all breathing a slight relief. The patient was then returned up to room 359 after formal PACU recovery. I was able to visit the patient even that evening and then of course in the morning of the . ESTIMATED BLOOD LOSS: 200 mL. COMPLICATIONS: Zero. ENTERPRISE INTEGRATION DEVELOPER SURGEON: Brian Murphy PA-C. Sponge and needle count correct at the close. I attest to the content of the Intraoperative Record and any orders documented therein. Any exception s are noted below.
[2018-06-02 17:14] LABS: Hematocrit (blood only) 26.3 % (37-47); Hemoglobin 8.7 g/dL (12.0-16.0); Mean Corpuscular Hgb Conc 33.1 g/dL (32-36); Mean Corpuscular Volume 89.5 fL (80-100); Mean Platelet Volume 9.6 fL (7.4-10.4); Platelet Count 254 K/uL (130-400); RDW Coefficient of Variation 14.2 % (11.5-14.5); RDW Standard Deviation 46.6 fL (36.4-46.3); Red Blood Count 2.94 M/uL (4.2-5.4); White Blood Count 14.37 K/uL (4.8-10.8)
[2018-06-03] MEDS: OXYCODONE HCL IR 5 MG TAB (IMMEDIATE RELEASE) PO PRN (01:17)
[2018-06-03] MEDS ORDERED: BISACODYL 5 MG TABEC PO PRN (06:00)
[2018-06-03 07:34] LABS: Hematocrit (blood only) 25.5 % (37-47); Hemoglobin 8.5 g/dL (12.0-16.0); Mean Corpuscular Hgb Conc 33.3 g/dL (32-36); Mean Corpuscular Volume 88.5 fL (80-100); Mean Platelet Volume 9.4 fL (7.4-10.4); Platelet Count 221 K/uL (130-400); RDW Coefficient of Variation 14.2 % (11.5-14.5); Red Blood Count 2.88 M/uL (4.2-5.4); White Blood Count 10.61 K/uL (4.8-10.8)
[2018-06-03 08:05] LABS: Calcium 7.8 mg/dl (8.5-10.1); Creatinine Clr Calc Pharmacy 62.2 ml/min; Est GFR (African American) 87.4; Est GFR (Non-African American) 75.4; Potassium 3.2 mmol/L (3.5-5.1)
[2018-06-03] MEDS: ATORVASTATIN 40 MG TAB PO SCH (08:38)
[2018-06-03] MEDS: PANTOprazole 40 MG TAB PO SCH (08:38)
[2018-06-03] MEDS: ASPIRIN 81 MG ECTAB PO SCH (08:38)
[2018-06-03] MEDS: LISINOPRIL/HCTZ 20/12.5MG 1 TAB TAB PO SCH (08:38)
[2018-06-03] MEDS: DOCUSATE SODIUM/SENNA 50/8.6MG TAB PO SCH ×2 (08:38→20:59)
[2018-06-03] MEDS ORDERED: MAGNESIUM CITRATE 296 ML/BTL PO STA (09:00)
[2018-06-03] MEDS ORDERED: POTASSIUM CHLORIDE 20 MEQ TABCR PO STA (11:11)
--- NOTE | 2018-06-03 11:13 | Hospitalist Progress Note ---
Date of Service June 03, 2018 Assessment & Plan (1) CSF leak: - S/p repair of lumbar spinal fluid leak on 06/01, POD#2. - Also developed compressive hematoma following procedure -- s/p repair of hematoma on 06/01, POD#2. - Pain control per primary team. - Holding home Eliquis in setting of bleed, recent procedure. (2) Back pain: - S/p spinal procedure on 05/28/18; presented for CSF leak, see above. - Primary management per ortho team. (3) Constipation: - Last BM was prior to surgery last week. - Senokot S BID scheduled with Miralax prn; will give mag citrate x 1 dose today due to lack of BM. - Consider KUB to rule out obstruction vs. ileus - currently passing flatus, will hold imaging. (4) Acute anemia: - Hgb trending down in setting of acute blood loss from procedure, hematoma. - Hgb stable ~8.5; monitor qAM. - Transfuse for hgb <8 due to cardiac history. (5) A-fib: - Paroxsymal A. fib. - Continue home Cardizem as prescribed. - Holding home Eliquis in setting of acute bleed. (6) GERD (gastroesophageal reflux disease): - PPI qAM. (7) History of myocardial infarction: - S/p cardiac cath at [facility] in September 2017; showed moderate mid LAD stenosis with borderline first diagonal branch proximal stenosis. - Continue statin, aspirin as prescribed. (8) HLD (hyperlipidemia): - Continue statin as prescribed. (9) HTN (hypertension): - Continue home HCTZ/Lisinopril as prescribed. (10) Electrolyte abnormality: - K level 3.2 -- ordered K 40 mEq PO. - Monitor repeat labs, including K, Mag and ICal in the morning. (11) DVT prophylaxis: - Holding Eliquis due to recent hematoma and procedure. Dispo: Med/surg; will continue to follow. Supervising Physician Co-Signing Physician Notes PA Supervision Note: I did not personally see or examine the patient today, but I verified all angela points of APARNA Campos's assessment and plan with the following exceptions/additions: None Subjective Pt. is doing well overall. Denies increased lower back pain. Has not had a BM but attributes constipation to lack of ambulation. Will trial mag citrate this morning. Has hahn catheter in place, will need removed for voiding trial. Review of Systems Review of Systems: All systems reviewed & are unremarkable except as noted in HPI & below Constitutional: no fever, no chills, no fatigue, no weakness and no anorexia Respiratory: no cough, no dyspnea and no wheezing Cardiovascular: no chest pain, no palpitations and no edema Gastrointestinal: + constipation; no abdominal pain, no nausea, no vomiting and no diarrhea/loose stools Genitourinary: no dysuria and no difficulty urinating Musculoskeletal: + back pain; no joint pain, no myalgia and no body aches Integumentary: no non-healing lesions Allergy / Immunological: no rash Physical Exam Physical Exam: General: Resting comfortably in no apparent distress; A&OX3 HEENT: NC/AT; PERRLA with EOMI; Mclean conjunctiva, MMM. Neck: Supple and nontender Cardiac: RRR Lungs: CTA bilaterally Abdomen: Bowel normoactive X 4; Nontender to palpation Extremities: Warm. No edema present Neuro: No focal weakness Skin: No rash; dressing in place over lumbar spine. Results & Data Vital Signs (Past 12 Hours) Vital Signs Temp Pulse Resp BP Pulse Ox Pulse Ox 06/03/18 08:03 36.9 C 76 17 164/82 H 96 06/03/18 07:45 96 Laboratory Results 06/03/18 06/03/18 06/02/18 Range/Units 07:16 07:16 17:00 WBC 10.61 14.37 H (4.8-10.8) K/uL RBC 2.88 L 2.94 L (4.2-5.4) M/uL Hgb 8.5 L 8.7 L (12.0-16.0) g/dL Hct 25.5 L 26.3 L (37-47) % MCV 88.5 89.5 (80-100) fL MCH 29.5 29.6 (25-34) pg MCHC 33.3 33.1 (32-36) g/dL RDW Std Deviation 46.0 46.6 H (36.4-46.3) fL RDW Coeff of Naveed 14.2 14.2 (11.5-14.5) % Plt Count 221 254 (130-400) K/uL MPV 9.4 9.6 (7.4-10.4) fL Sodium 139 (136-145) mmol/L Potassium 3.2 L (3.5-5.1) mmol/L Chloride 103 (98-107) mmol/L Carbon Dioxide 29 (21-32) mmol/L Anion Gap 7.0 (3-11) BUN 18 (7-18) mg/dl Creatinine 0.78 (0.6-1.2) mg/dl Est Cr Clr Drug Dosing 62.2 ml/min Est GFR ( Amer) 87.4 Est GFR (Non-Af Amer) 75.4 BUN/Creatinine Ratio 23.0 H (10-20) Glucose 106 H (70-99) mg/dl Calcium 7.8 L (8.5-10.1) mg/dl
[2018-06-03] MEDS: dilTIAZem HCL 120 MG CAPCR PO SCH (20:59)
[2018-06-04 07:38] LABS: Hematocrit (blood only) 28.7 % (37-47); Hemoglobin 9.4 g/dL (12.0-16.0); Mean Corpuscular Hgb Conc 32.8 g/dL (32-36); Mean Corpuscular Volume 89.4 fL (80-100); Mean Platelet Volume 9.6 fL (7.4-10.4); Platelet Count 238 K/uL (130-400); RDW Coefficient of Variation 14.1 % (11.5-14.5); RDW Standard Deviation 46.4 fL (36.4-46.3); Red Blood Count 3.21 M/uL (4.2-5.4); White Blood Count 12.05 K/uL (4.8-10.8)
[2018-06-04 08:11] LABS: BUN Creatinine Ratio 25.1 (10-20); Calcium 8.2 mg/dl (8.5-10.1); Creatinine Clr Calc Pharmacy 69.3 ml/min; Est GFR (African American) 99.6; Magnesium 2.7 mg/dl (1.8-2.4); Potassium 3.8 mmol/L (3.5-5.1)
[2018-06-04] MEDS: DOCUSATE SODIUM/SENNA 50/8.6MG TAB PO SCH ×2 (08:20→20:46)
[2018-06-04] MEDS: LISINOPRIL/HCTZ 20/12.5MG 1 TAB TAB PO SCH (08:20)
[2018-06-04] MEDS: PANTOprazole 40 MG TAB PO SCH (08:20)
[2018-06-04] MEDS: ASPIRIN 81 MG ECTAB PO SCH (08:20)
[2018-06-04] MEDS ORDERED: CALCIUM GLUCONATE 10% 1,000 MG in SODIUM CHLORIDE 0.9% 50 ML IV ONE (10:15)
[2018-06-04] MEDS ORDERED: PROCHLORPERAZINE 10 MG in SYRINGE 8 ML IV PRN (10:19)
--- NOTE | 2018-06-04 10:26 | Urology Consultation ---
Date of Consultation June 04, 2018 Assessment & Plan (1) Urinary retention: 73YO female with post op UR. Aviles in place, patent, draining yellow urine. Not bothersome to patient. Recommend Aviles remain in place x 7-14 days. Home Aviles teaching per nursing. Will arrange outpatient trial of void and follow up in our [place] office as this is much closer to patient's home. Thank you for allowing us to participate in the care of this patient. Please contact our service with additional questions/concerns. History of Present Illness Attending Physician: Stone Wyatt, History of Present Illness 73YO female s/p multiple spinal surgeries with postop UR. Initially had catheter placed during repeat surgery this weekend, removed yesterday and unfortunately no spontaneous void since. Required straight cath x 2, indwelling Aviles replaced this AM. She has never seen a urologist before. Patient reports feeling better since Aviles re-insertion. Aviles is not painful or bothersome. Some nausea. No flank/abdominal pain. Allergies Allergy/AdvReac Type Severity Reaction Status Date / Time bee pollen Allergy Severe hives, Verified 05/31/18 11:56 throat swelling honey Allergy Severe throat Verified 05/31/18 11:56 swells;wheezing moxifloxacin AdvReac Intermediate general Verified 05/31/18 11:56 "knocks me out" Home Medications Home Medications Medication Instructions Recorded Confirmed Type Eliquis 5 mg PO BID 05/07/18 05/31/18 History acetaminophen 1,000 mg PO Q6H PRN 05/07/18 05/31/18 History aspirin [Aspir-81] 81 mg PO QAM 05/07/18 05/31/18 History atorvastatin 40 mg PO 3XWK 05/07/18 05/31/18 History coenzyme Q10 [CoQ-10] 100 mg PO HS 05/07/18 05/31/18 History diltiazem HCl [Cartia XT] 120 mg PO HS 05/07/18 05/31/18 History esomeprazole magnesium 20 mg PO QAM 05/07/18 05/31/18 History folic acid 800 mcg PO QAM 05/07/18 05/31/18 History lisinopril-hydrochlorothiazide 1 tab PO QAM 05/07/18 05/31/18 History tramadol 50 mg PO Q12H PRN 05/07/18 05/31/18 History hydrocodone-acetaminophen [[place]] 1 tab PO Q6H PRN #40 tab 05/30/18 05/31/18 Rx Patient History Medical History Atrial fibrillation Degenerative disc disease GERD (gastroesophageal reflux disease) History of shingles Hx of myocardial infarction Was not feeling well and was sent to [facility] [place] by PCP. Did cardiac cath with no stents. September 2017. Hyperlipidemia Hypertension Osteoarthritis Surgical History History of back surgery x2. Most recent 05/28/2018. GETA. No issues. History of cardiac cath 09/2017 - [place] [facility] History of carpal tunnel release of both wrists History of cataract surgery History of partial hysterectomy right ovary not removed Hx of arthroscopic knee surgery right Hx of foot surgery x3 procedures at same surgery - foot, heel , lower tib/fib Nausea and vomiting after administration of anesthetic agent Family History Mother Family history of diabetes mellitus Other FHx: brain cancer FHx: breast cancer Social History Preferred Language: Iranian Communication Ability: Effective Beliefs That Will Affect Care: None marital status: Current Living Situation: Spouse Other Information That Helps Us Care for You: No Feels Safe at Home: Yes Safety Concerns: Feels Safe At This Time Smoking Status: Never smoker Hx Alcohol Use: Yes Alcohol type: wine Hx Substance Use: No Review of Systems Constitutional: no fever and no chills Eyes: no worsening vision Ear, Nose, Mouth, Throat: no hearing loss Respiratory: no dyspnea Cardiovascular: no chest pain Gastrointestinal: + nausea; no abdominal pain and no vomiting Genitourinary: as per Subjective / HPI Integumentary: + wounds (surgical, L spine) Neurologic: no confusion Psychiatric: no problem reported Physical Exam Constitutional: WD/WN, vitals as above + overweight ENMT: Ears: no hearing impairment Neck: normal visual inspection Respiratory: normal respiratory effort; does not use accessory muscles Cardiovascular: Vessels: no JVD Gastrointestinal (Abdomen): Inspection/Auscultation: abdomen not distended Percussion/Palpation: abdomen soft; abdomen nontender Psychiatric: A+Ox3, euthymic affect Genitourinary: Aviles in place, patent, draining yellow urine. Results & Data Vital Signs (Past 12 Hours) Vital Signs Temp Pulse Pulse Resp BP Pulse Ox 06/04/18 07:54 36.9 C 81 16 122/80 94 06/04/18 07:05 36.9 C 16 122/80 94 06/03/18 23:47 37.2 C 89 16 98/62 L 95
--- NOTE | 2018-06-04 10:45 | Progress Note ---
DATE: 06/04/2018 SUBJECTIVE: She is alert, oriented this morning. No chest pain, but significant nausea, some vomiting. She does have good bowel sounds. OBJECTIVE: Temperature 36.9, blood pressure controlled, pulse regular at 80 beats per minute. She has been in atrial fibrillation in the past. She is in sinus rhythm now. Wound clean protected. ASSESSMENT: Status post lumbar spine surgery, repair of the dura and cauda equina compression. PLAN: We will try to get her up well with physical therapy today. She will probably need a Aviles catheter. She will need some long-term health care management. We will restart some IV fluid secondary to the nausea. Anticipated discharge probably tomorrow, which is Friday or Friday.
[2018-06-04] MEDS: SODIUM CHLORIDE 0.9% 1000ML 1,000 ML IV SCH ×2 (10:47→20:51)
[2018-06-04 10:57] LABS: Appearance Urine Cloudy (Clear); Bacteria Urine Automated Negative (Negative); Bilirubin Urine Negative (Negative); Blood Urine 3+ (Negative); Cast Urine Automated 0 /lpf (0-5); Color Urine Yellow; Glucose Urine UA Negative (Negative); Ketones Urine Negative (Negative); Leukocyte Esterase Urine 2+ (Negative); Nitrite Urine Negative (Negative); Protein Urine Negative (Negative); RBC Urine Automated >30 /hpf (0-4); Specific Gravity Urine 1.017 (1.000-1.030); Urobilinogen Urine Negative (Negative); pH Urine 7.5 (4.5-7.5)
--- NOTE | 2018-06-04 13:42 | Hospitalist Progress Note ---
Date of Service June 04, 2018 Assessment & Plan (1) CSF leak: - S/p repair of lumbar spinal fluid leak on 06/01, POD#3. - Also developed compressive hematoma following procedure -- s/p repair of hematoma on 06/01, POD#3. - Pain control per primary team. - Holding home Eliquis in setting of bleed & recent procedure. (2) Back pain: - S/p spinal procedure on 05/28/18; presented for CSF leak, see above. - Primary management per ortho team. (3) Nausea and vomiting: - In setting of recent mag citrate and post op setting. - Anti-emetics prn. - Restart IV fluids at 80 cc/hr. (4) Urinary retention: - Failed voiding trial on 06/03/18, has required frequent straight cath. - Will replace hahn catheter. - Urology consulted, will maintain hahn for >7 days and need to follow up as outpatient. - U/a was negative; does have rising WBC count, has not received steroids. (5) Constipation: - Now improved, had BM on 06/03 following mag citrate dose. - Senokot S BID scheduled with Miralax prn. (6) Acute anemia: - Hgb below baseline in setting of acute blood loss from procedure, hematoma. - Hgb stable, monitor qAM. (7) A-fib: - Paroxsymal A. fib; currently in NSR. - Continue home Cardizem as prescribed. - Holding home Eliquis in setting of recent procedure. (8) GERD (gastroesophageal reflux disease): - PPI qAM. (9) History of myocardial infarction: - S/p cardiac cath at [facility] in September 2017; showed moderate mid LAD stenosis with borderline first diagonal branch proximal stenosis. - Continue statin, aspirin as prescribed. (10) HLD (hyperlipidemia): - Continue statin as prescribed. (11) HTN (hypertension): - Continue home HCTZ/Lisinopril as prescribed. (12) Electrolyte abnormality: - ICal level 1.07 - ordered calcium gluconate 1 gm IV. - Monitor electrolytes daily. (13) DVT prophylaxis: - Holding Eliquis due to recent hematoma and procedure. Dispo: Med/surg; will continue to follow. PT/OT ordered. Supervising Physician Co-Signing Physician Notes PA Supervision Note: I did not personally see or examine the patient today, but I verified all angela points of APARNA Campos's assessment and plan with the following exceptions/additions: None Subjective Pt has nausea/vomiting today. Did have large BM yesterday following mag citrate dose. N/V started after mag citrate. She complains of a bad taste in her mouth. Has urinary retention - hahn was removed on 06/03 and patient has required multiple straight caths since then. Will re-insert hahn and maintain for 1-2 weeks. Review of Systems Review of Systems: All systems reviewed & are unremarkable except as noted in HPI & below Constitutional: no fever, no chills, no fatigue and no weakness Respiratory: no cough and no dyspnea Cardiovascular: no chest pain, no palpitations and no edema Gastrointestinal: + nausea; no abdominal pain, no vomiting, no constipation and no diarrhea/loose stools Genitourinary: + difficulty urinating Musculoskeletal: + back pain; no joint pain Integumentary: no non-healing lesions Allergy / Immunological: no rash Physical Exam Physical Exam: General: Resting comfortably in no apparent distress; A&OX3 HEENT: NC/AT; PERRLA with EOMI; [place] conjunctiva, MMM. Neck: Supple and nontender Cardiac: RRR Lungs: CTA bilaterally Abdomen: Bowel normoactive X 4; Nontender to palpation Extremities: Warm. No edema present Neuro: No focal weakness Skin: No rash; dressing in place. Results & Data Vital Signs (Past 12 Hours) Vital Signs Temp Pulse Resp BP Pulse Ox 06/04/18 07:54 36.9 C 81 16 122/80 94 06/04/18 07:05 36.9 C 16 122/80 94 Laboratory Results 06/04/18 06/04/18 06/04/18 Range/Units 10:40 07:25 07:25 WBC (4.8-10.8) K/uL RBC (4.2-5.4) M/uL Hgb (12.0-16.0) g/dL Hct (37-47) % MCV (80-100) fL MCH (25-34) pg MCHC (32-36) g/dL RDW Std Deviation (36.4-46.3) fL RDW Coeff of Naveed (11.5-14.5) % Plt Count (130-400) K/uL MPV (7.4-10.4) fL Sodium 139 (136-145) mmol/L Potassium 3.8 D (3.5-5.1) mmol/L Chloride 104 (98-107) mmol/L Carbon Dioxide 30 (21-32) mmol/L Anion Gap 5.0 (3-11) BUN 18 (7-18) mg/dl Creatinine 0.70 (0.6-1.2) mg/dl Est Cr Clr Drug Dosing 69.3 ml/min Est GFR ( Amer) 99.6 Est GFR (Non-Af Amer) 86.0 BUN/Creatinine Ratio 25.1 H (10-20) Glucose 116 H (70-99) mg/dl Calcium 8.2 L (8.5-10.1) mg/dl Ionized Calcium 1.07 L (1.12-1.32) mmol/L Magnesium 2.7 H (1.8-2.4) mg/dl Urine Color Yellow Urine Appearance Cloudy H (Clear) Urine pH 7.5 (4.5-7.5) Ur Specific [place] 1.017 (1.000-1.030) Urine Protein Negative (Negative) Urine Glucose (UA) Negative (Negative) Urine Ketones Negative (Negative) Urine Blood 3+ H (Negative) Urine Nitrite Negative (Negative) Urine Bilirubin Negative (Negative) Urine Urobilinogen Negative (Negative) Ur Leukocyte Esterase 2+ H (Negative) Urine WBC (Auto) 5-10 H (0-5) /hpf Urine RBC (Auto) >30 H (0-4) /hpf U Hyaline Cast (Auto) 0 (0-5) /lpf U Epithel Cells (Auto) 10-20 H (0-5) /lpf Urine Bacteria (Auto) Negative (Negative) 06/04/18 Range/Units 07:25 WBC 12.05 H (4.8-10.8) K/uL RBC 3.21 L (4.2-5.4) M/uL Hgb 9.4 L (12.0-16.0) g/dL Hct 28.7 L (37-47) % MCV 89.4 (80-100) fL MCH 29.3 (25-34) pg MCHC 32.8 (32-36) g/dL RDW Std Deviation 46.4 H (36.4-46.3) fL RDW Coeff of Naveed 14.1 (11.5-14.5) % Plt Count 238 (130-400) K/uL MPV 9.6 (7.4-10.4) fL Sodium (136-145) mmol/L Potassium (3.5-5.1) mmol/L Chloride (98-107) mmol/L Carbon Dioxide (21-32) mmol/L Anion Gap (3-11) BUN (7-18) mg/dl Creatinine (0.6-1.2) mg/dl Est Cr Clr Drug Dosing ml/min Est GFR ( Amer) Est GFR (Non-Af Amer) BUN/Creatinine Ratio (10-20) Glucose (70-99) mg/dl Calcium (8.5-10.1) mg/dl Ionized Calcium (1.12-1.32) mmol/L Magnesium (1.8-2.4) mg/dl Urine Color Urine Appearance (Clear) Urine pH (4.5-7.5) Ur Specific [place] (1.000-1.030) Urine Protein (Negative) Urine Glucose (UA) (Negative) Urine Ketones (Negative) Urine Blood (Negative) Urine Nitrite (Negative) Urine Bilirubin (Negative) Urine Urobilinogen (Negative) Ur Leukocyte Esterase (Negative) Urine WBC (Auto) (0-5) /hpf Urine RBC (Auto) (0-4) /hpf U Hyaline Cast (Auto) (0-5) /lpf U Epithel Cells (Auto) (0-5) /lpf Urine Bacteria (Auto) (Negative)
[2018-06-04] MEDS: dilTIAZem HCL 120 MG CAPCR PO SCH (20:49)
[2018-06-04] MEDS: OXYCODONE HCL IR 5 MG TAB (IMMEDIATE RELEASE) PO PRN (20:49)
[2018-06-05] MEDS: OXYCODONE HCL IR 5 MG TAB (IMMEDIATE RELEASE) PO PRN ×3 (03:25→20:30)
[2018-06-05 05:50] LABS: Hematocrit (blood only) 27.2 % (37-47); Hemoglobin 9.3 g/dL (12.0-16.0); Mean Corpuscular Hgb Conc 34.2 g/dL (32-36); Mean Corpuscular Volume 89.8 fL (80-100); Mean Platelet Volume 9.4 fL (7.4-10.4); Platelet Count 238 K/uL (130-400); RDW Coefficient of Variation 14.1 % (11.5-14.5); RDW Standard Deviation 46.4 fL (36.4-46.3); Red Blood Count 3.03 M/uL (4.2-5.4); White Blood Count 11.51 K/uL (4.8-10.8)
[2018-06-05 06:16] LABS: BUN Creatinine Ratio 26.6 (10-20); Creatinine Clr Calc Pharmacy 73.5 ml/min; Est GFR (African American) 101.6; Est GFR (Non-African American) 87.6; Potassium 3.8 mmol/L (3.5-5.1)
[2018-06-05] MEDS: PANTOprazole 40 MG TAB PO SCH (09:09)
[2018-06-05] MEDS: SODIUM CHLORIDE 0.9% 1000ML 1,000 ML IV SCH ×2 (09:09→20:30)
[2018-06-05] MEDS: ASPIRIN 81 MG ECTAB PO SCH (09:10)
[2018-06-05] MEDS: LISINOPRIL/HCTZ 20/12.5MG 1 TAB TAB PO SCH (09:10)
[2018-06-05] MEDS: DOCUSATE SODIUM/SENNA 50/8.6MG TAB PO SCH ×2 (09:13→20:30)
--- NOTE | 2018-06-05 10:58 | Hospitalist Progress Note ---
Date of Service June 05, 2018 Assessment & Plan (1) CSF leak: - S/p repair of lumbar spinal fluid leak on 06/01, POD#4. - Also developed compressive hematoma following procedure -- s/p repair of hematoma on 06/01, POD#4. - Pain control per primary team. - Holding home Eliquis - can restart when ok from a Surgical standpoint (2) Back pain: - S/p spinal procedure on 05/28/18; presented for CSF leak, see above. - Primary management per ortho team. (3) Nausea and vomiting: - In setting of recent mag citrate and post op setting, now improved. - Anti-emetics prn. - Continue IV fluids at 80 cc/hr. (4) Urinary retention: - Failed voiding trial on 06/03/18, required frequent straight cath. - May be medication related (narcotics) vs. other. - Re-inserted hahn catheter on 06/04, will maintain for 1-2 weeks. - Urology consulted, will need to follow up in [facility] office for removal. - U/a was negative. (5) Constipation: - Improved following mag citrate; has not had BM in 48 hours, pt. states this is regular for her. - Senokot S BID scheduled. (6) Acute anemia: - Hgb below baseline in setting of acute blood loss from procedure, hematoma. - Hgb stable, monitor qAM. (7) A-fib: - Paroxsymal A. fib; currently in NSR. - Continue home Cardizem as prescribed. - Holding home Eliquis - restart when ok from Surgical standpoint (8) GERD (gastroesophageal reflux disease): - PPI qAM. (9) History of myocardial infarction: - S/p cardiac cath at [facility] in September 2017; showed moderate mid LAD stenosis with borderline first diagonal branch proximal stenosis. - Continue statin, aspirin as prescribed. (10) HLD (hyperlipidemia): - Continue statin as prescribed. (11) HTN (hypertension): - Continue home HCTZ/Lisinopril as prescribed. (12) Electrolyte abnormality: - Monitor electrolytes daily. (13) DVT prophylaxis: - Holding Eliquis due to hematoma and procedure. Dispo: Med/surg; pt. is medically stable, will sign off. Please call with any questions. Supervising Physician Co-Signing Physician Notes PA Supervision Note: I did not personally see or examine the patient today, but I verified all angela points of APARNA Campos's assessment and plan with the following exceptions/additions: None Subjective Pt. is doing well today. Nausea is improved, is tolerating PO intake. Sour/metallic taste in mouth is improved. Has not had a BM since mag citrate dose 2 days ago -- pt. states she does not have BMs daily. Denies abd pain or bloating. PT will work with patient -- plan for discharge to home likely tomorrow. Review of Systems Review of Systems: All systems reviewed & are unremarkable except as noted in HPI & below Constitutional: no fever, no chills, no fatigue and no weakness Respiratory: no cough, no dyspnea and no wheezing Cardiovascular: no chest pain, no palpitations and no edema Gastrointestinal: + constipation; no abdominal pain, no nausea, no vomiting and no diarrhea/loose stools Genitourinary: + difficulty urinating (Has hahn in place. ) Musculoskeletal: + back pain; no joint pain Integumentary: no non-healing lesions Allergy / Immunological: no rash Physical Exam Physical Exam: General: Resting comfortably in no apparent distress; A&OX3 HEENT: NC/AT; PERRLA with EOMI; [place] conjunctiva, MMM. Neck: Supple and nontender Cardiac: RRR Lungs: CTA bilaterally Abdomen: Bowel normoactive X 4; Nontender to palpation Extremities: Warm. No edema present Neuro: No focal weakness Skin: No rash; dressing in place, no discharge noted. Results & Data Vital Signs (Past 12 Hours) Vital Signs Temp Pulse Pulse Resp BP Pulse Ox 06/05/18 08:00 37.1 C 82 18 112/72 95 06/04/18 23:32 36.8 C 93 H 18 132/69 97 Laboratory Results 06/05/18 06/05/18 06/04/18 Range/Units 05:40 05:40 10:40 WBC 11.51 H (4.8-10.8) K/uL RBC 3.03 L (4.2-5.4) M/uL Hgb 9.3 L (12.0-16.0) g/dL Hct 27.2 L (37-47) % MCV 89.8 (80-100) fL MCH 30.7 (25-34) pg MCHC 34.2 (32-36) g/dL RDW Std Deviation 46.4 H (36.4-46.3) fL RDW Coeff of Naveed 14.1 (11.5-14.5) % Plt Count 238 (130-400) K/uL MPV 9.4 (7.4-10.4) fL Sodium 140 (136-145) mmol/L Potassium 3.8 (3.5-5.1) mmol/L Chloride 106 (98-107) mmol/L Carbon Dioxide 28 (21-32) mmol/L Anion Gap 6.0 (3-11) BUN 18 (7-18) mg/dl Creatinine 0.66 (0.6-1.2) mg/dl Est Cr Clr Drug Dosing 73.5 ml/min Est GFR ( Amer) 101.6 Est GFR (Non-Af Amer) 87.6 BUN/Creatinine Ratio 26.6 H (10-20) Glucose 105 H (70-99) mg/dl Calcium 8.0 L (8.5-10.1) mg/dl Urine Color Yellow Urine Appearance Cloudy H (Clear) Urine pH 7.5 (4.5-7.5) Ur Specific [place] 1.017 (1.000-1.030) Urine Protein Negative (Negative) Urine Glucose (UA) Negative (Negative) Urine Ketones Negative (Negative) Urine Blood 3+ H (Negative) Urine Nitrite Negative (Negative) Urine Bilirubin Negative (Negative) Urine Urobilinogen Negative (Negative) Ur Leukocyte Esterase 2+ H (Negative) Urine WBC (Auto) 5-10 H (0-5) /hpf Urine RBC (Auto) >30 H (0-4) /hpf U Hyaline Cast (Auto) 0 (0-5) /lpf U Epithel Cells (Auto) 10-20 H (0-5) /lpf Urine Bacteria (Auto) Negative (Negative)
[2018-06-05] MEDS: dilTIAZem HCL 120 MG CAPCR PO SCH (20:30)
[2018-06-06] MEDS: OXYCODONE HCL IR 5 MG TAB (IMMEDIATE RELEASE) PO PRN (01:26)
[2018-06-06] MEDS: ATORVASTATIN 40 MG TAB PO SCH (08:56)
[2018-06-06] MEDS: ASPIRIN 81 MG ECTAB PO SCH (08:57)
[2018-06-06] MEDS: LISINOPRIL/HCTZ 20/12.5MG 1 TAB TAB PO SCH (08:57)
[2018-06-06] MEDS: PANTOprazole 40 MG TAB PO SCH (08:57)
[2018-06-06] MEDS: DOCUSATE SODIUM/SENNA 50/8.6MG TAB PO SCH (09:01)
--- NOTE | 2018-06-06 13:16 | Discharge Summary ---
SUBJECTIVE: She is alert, oriented this morning, ambulated, passed physical therapy, taking p.o. OBJECTIVE: Vital signs stable, afebrile. Wound clean. ASSESSMENT: Status post lumbar spine reconstructive surgery, repair of dura and evacuation of hematoma for a cauda equina syndrome. PLAN: We will let Adelaida discharge home here today. Instructions, precautions, warnings. Prescriptions are at home. She has a walker. She has a prescription for a lift chair. I am seeing her back in approximately 6 days for followup.
--- NOTE | 2018-07-10 09:54 | Coding Query ---
CODING QUERY To promote full compliance with coding requirements relating to patient care, provider participation is requested in all cases of microstrategy bi developer uncertainty. Please assist us with the question(s) below: Coding Question: Please clarify if the CSF leak was related to her surgery the day before admission. Thank you so much for your help! ( ) CSF leak, a complication of care ( ) CSF leak, incidental or inherent to procedure; not a complication of care ( ) Other, explain Thank you! Peyton Kurtz Principal Diagnosis: "that condition established after study, to be chiefly responsible for occasioning the admission of the patient to the hospital for care." Co-Existing Principal Diagnosis: "when two or more diagnoses equally meet the criteria for principal diagnosis as determined by the circumstances of admission, diagnostic work up, and/or therapy provided, and the Alphabetic Index, Tabular List, or another coding guideline does not provide sequencing direction, any one of the diagnoses may be sequenced first." "When the physician has documented what appears to be a current diagnosis in the body of the record, but has not included the diagnosis in the final diagnostic statement, the physician should be asked whether the diagnosis should be added." (Source [facility] 2 QTR90. p3-4) GOLDEN
--- NOTE | 2018-07-15 08:13 | Operative Report ---
DATE OF OPERATION: 07/14/2018 CODING QUERY/ADDENDUM In my clinical opinion, the spinal fluid leak is incidental or actually inherent to the procedure and I am not calling a true complication. I attest to the content of the Intraoperative Record and any orders documented therein. Any exception s are noted below.
== END 2018-06-06 12:05 | disposition home or self-care (01) | DRG 29 ==
LOC: ED 11:14 → 3W 13:09

== ENCOUNTER 2021-09-04 09:18 | Observation (INO) ==
--- NOTE | 2021-08-02 10:48 | PAT Medication Instructions ---
Medication Instructions Date of Service August 02, 2021 Home Medications Medication Instructions Recorded esomeprazole magnesium 20 mg 20 mg PO QAM #90 tab 12/29/19 tablet,delayed release atorvastatin 40 mg tablet 40 mg PO 3XWK #90 tab 10/02/20 diltiazem HCl 120 mg 120 mg PO HS #90 cap 04/09/21 capsule,extended release 24 hr (Cartia XT) lisinopril 20 1 tab PO QAM #90 tab 05/07/21 mg-hydrochlorothiazide 12.5 mg tablet tramadol 50 mg tablet See Rx Instructions PO q6h PRN 05/07/21 #240 tab apixaban 5 mg tablet (Eliquis) 5 mg PO BID #180 tab 06/08/21 esomeprazole magnesium 20 mg tablet,delayed release 20 mg PO QAM atorvastatin 40 mg tablet 40 mg PO 3XWK diltiazem HCl 120 mg capsule,extended release 24 hr (Cartia XT) 120 mg PO HS lisinopril 20 mg-hydrochlorothiazide 12.5 mg tablet 1 tab PO QAM tramadol 50 mg tablet See Rx Instructions PO q6h PRN apixaban 5 mg tablet (Eliquis) 5 mg PO BID cholecalciferol (vitamin D3) 10 mcg (400 unit) tablet (Vitamin D3) 10 mcg PO QAM potassium chloride 20 mEq tablet,extended release 20 meq PO QAM zinc 50 mg tablet 50 mg PO QAM Continue as directed atorvastatin 40 mg tablet 40 mg PO 3XWK ASK your prescriber and surgeon apixaban 5 mg tablet (Eliquis) 5 mg PO BID(in order for spinal or epidural anesthesia, Eliquis needs to be stopped 72 hours/3 days before surgery. Please check if okay with doctor that prescribes this to you) DO NOT take the morning of surgery lisinopril 20 mg-hydrochlorothiazide 12.5 mg tablet 1 tab PO QAM cholecalciferol (vitamin D3) 10 mcg (400 unit) tablet (Vitamin D3) 10 mcg PO QAM potassium chloride 20 mEq tablet,extended release 20 meq PO QAM zinc 50 mg tablet 50 mg PO QAM Take morning of surgery With a small sip of water, OTHERWISE NOTHING TO EAT OR DRINK AFTER MIDNIGHT: esomeprazole magnesium 20 mg tablet,delayed release 20 mg PO QAM tramadol 50 mg tablet See Rx Instructions PO q6h PRN(if needed) Take evening before surgery diltiazem HCl 120 mg capsule,extended release 24 hr (Cartia XT) 120 mg PO HS tramadol 50 mg tablet See Rx Instructions PO q6h PRN(if needed) Other Notes If you have any questions please call us at [phone] or [phone] or [phone] or [phone]
--- NOTE | 2021-08-07 10:09 | Anesthesiology Consultation ---
Date of Service August 07, 2021 Assessment & Plan (1) Encounter for pre-operative examination: - Patient establishing with [facility] cardio prior to surgery (previously seen by [facility] nursing faculty). Awaiting nursing faculty office visit (08/23; [facility]). - COVID screening: Per assessment on 08/07: No known COVID-19 positive contacts or current COVID-19 related symptoms. Travel screen negative. Patient vaccinated. Surgeon arranging preop COVID testing. Awaiting results. - S/P Evacuation lumbar hematoma (r/t post-op leak)- 06/01/18: Grade 1 view, Byrd#2, ETT 7.5 at [facility]. - Extensive back hardware with hx of lumbar hematoma and post-op leak after previous back surgery. Discussed SAB vs. GA. Advised patient that ultimate anesthesia decision will be made between patient/anesthesiologist/surgeon AM DOS. - Eliquis instructions: patient made aware that in order for spinal anesthesia, Eliquis needs to be held 72 hours/3 days prior to surgery. Patient voiced understanding/will check if okay with prescriber. Chart Review Chart Review: Patient seen in Pre Admission Testing Teaching & Discussion Pre-Anesthesia Teaching/Discussion Notes: Instructed NPO after midnight before surgery,except medications with 15 cc of water. Medication instructions provided according to the PAT guidelines. History Surgery Operation Date: 09/04/21 07:15 Proposed Procedures p Left Total Knee Arthroplasty - Greg Frederick DO Height/Weight Height: 5 ft Weight: 78.7 kg Allergies Allergy/AdvReac Type Severity Reaction Status Date / Time bee pollen Allergy Severe Hives, Verified 08/03/21 10:56 throat swelling honey Allergy Severe Throat Verified 08/03/21 10:56 swells, wheezing adhesive tape Allergy Mild Irritation, Verified 08/03/21 10:56 rash moxifloxacin AdvReac Intermediate "Knocks me Verified 08/03/21 10:56 out" Medications Home Medications Medication Instructions Recorded Confirmed Last Taken esomeprazole magnesium 20 mg 20 mg PO QAM #90 tab 12/29/19 08/02/21 Unknown tablet,delayed release atorvastatin 40 mg tablet 40 mg PO 3XWK #90 tab 10/02/20 08/02/21 Unknown diltiazem HCl 120 mg 120 mg PO HS #90 cap 04/09/21 08/02/21 Unknown capsule,extended release 24 hr (Cartia XT) lisinopril 20 1 tab PO QAM #90 tab 05/07/21 08/02/21 Unknown mg-hydrochlorothiazide 12.5 mg tablet tramadol 50 mg tablet See Rx Instructions PO q6h PRN 05/07/21 08/02/21 Unknown #240 tab apixaban 5 mg tablet (Eliquis) 5 mg PO BID #180 tab 06/08/21 08/02/21 Unknown cholecalciferol (vitamin D3) 10 10 mcg PO QAM 08/02/21 08/02/21 Unknown mcg (400 unit) tablet (Vitamin D3) potassium chloride 20 mEq 20 meq PO QAM 08/02/21 08/02/21 Unknown tablet,extended release zinc 50 mg tablet 50 mg PO QAM 08/02/21 08/02/21 Unknown Past Medical History Medical History Atrial fibrillation [facility] cardiology appt 08/23 (previously follows with [place] [facility]) Chronic anemia Hgb baseline 11-12 range Coronary artery disease Moderate mid LAD stenosis with borderline first diagonal branch proximal stenosis per 09/2017 cardiac cath > medically managed GERD (gastroesophageal reflux disease) History of myocardial infarction 2017 History of shingles HLD (hyperlipidemia) HTN (hypertension) Lumbar disc disease Lumbar spinal stenosis Osteoarthritis Exercise / Class Metabolic Activity III < 4 Walking/Shop/Light housework (one FS (no CP, + SOB)) Past Family History Family History Mother Diabetes Family history of diabetes mellitus Coronary heart disease Heart disease Myocardial infarction Hypertension Sister Breast cancer Father Coronary heart disease Heart disease Myocardial infarction Hypertension Other FHx: brain cancer FHx: breast cancer No family history of adverse response to anesthesia Denies family history of Ovarian cancer Prostate cancer Lung cancer Colorectal cancer Past Surgical History Surgical History H/O hysterectomy with oophorectomy History of appendectomy History of back surgery Multiple (x3 total) L2-L4 hardware removal, T12-L2 fusion (05/29/18 at [facility]) History of cardiac cath 09/2017 - [facility] > no stents History of carpal tunnel release of both wrists R/L History of cataract surgery R/L History of colonoscopy History of esophagogastroduodenoscopy (EGD) Hx of arthroscopic knee surgery Right Hx of foot surgery Foot, heel, lower tib/fib surgery Nausea and vomiting after administration of anesthetic agent S/P evacuation of hematoma Evacuation lumbar hematoma (r/t post-op leak)- 06/01/18: Grade 1 view, Byrd#2, ETT 7.5 at [facility]. Status post insertion of spinal cord stimulator Removed 2013 [place] teeth removed Past Anesthesia History No Hx of Anesthesia Complications (except PONV) and No Family Hx of Anesthesia Complications History of PONV No Hx of Motion Sickness and History of PONV Social History Smoking Status: Never smoker Do You Dip or Chew Tobacco: No Hx Alcohol Use: Yes alcohol intake frequency: holidays/special occasions only Hx Substance Use: No substance use type: does not use Review of Systems Patient denies chest pain, shortness of breath, fever, chills, cough, wheezing, palpitations. Physical Exam Vital Signs VITALS BP 132/77 P 71 TEMP 98.5 SP02 97%RA RESP 18 PHYSICAL Full cervical extension range of motion. Full TMJ range of motion. TMD 3 finger breaths Mallampati Score 1 Dentition: missing molars Lungs: clear throughout to auscultation Cardiac: regular rate and rhythm, no murmurs noted Spine: normal Carotid arteries: negative bruit Extremities: no edema Lab Results Anesthesia Preop Results Results Anesthesia Widget: WBC 9.67 K/uL (4.8-10.8) 08/07/21 Hgb 11.1 g/dL (12.0-16.0) L 08/07/21 Hct 35.1 % (37-47) L 08/07/21 Plt 304 K/uL (130-400) 08/07/21 Na 136 mmol/L (136-145) 08/07/21 K 3.7 mmol/L (3.5-5.1) 08/07/21 Cl 102 mmol/L (98-107) 08/07/21 CO2 25 mmol/L (21-32) 08/07/21 BUN 19 mg/dl (6-23) 08/07/21 Creat 0.78 mg/dl (0.6-1.2) 08/07/21 Glucose Level 116 mg/dl (70-99(Fasting)) H 08/07/21 PT 10.8 Seconds (9.0-12.0) 08/07/21 PTT 27.6 Seconds (21.0-31.0) 08/07/21 INR 1.0 (0.9-1.1) 08/07/21 HA1c 6.0 % (4.5-5.6) H 08/07/21 Urine Color Yellow 08/07/21 Urine Appearance Clear (Clear) 08/07/21 Urine pH 6.0 (4.5-7.5) 08/07/21 Urine Specific Orange 1.008 (1.000-1.030) 08/07/21 Urine Protein Negative (Negative) 08/07/21 Urine Glucose (UA) Negative (Negative) 08/07/21 Urine Ketones Negative (Negative) 08/07/21 Urine Blood Negative (Negative) 08/07/21 Urine Nitrite Negative (Negative) 08/07/21 Urine Bilirubin Negative (Negative) 08/07/21 Urine Urobilinogen Negative (Negative) 08/07/21 Urine Leukocyte Esterase 1+ (Negative) H 08/07/21 Urine WBC (Auto) 1-5 /hpf (0-5) 08/07/21 Urine RBC (Auto) 0-4 /hpf (0-4) 08/07/21 Urine Hyaline Casts (Auto) 0 /lpf (0-5) 08/07/21 Urine Epithelial Cells (Auto) 10-20 /lpf (0-5) H 08/07/21 Urine Bacteria (Auto) Negative (Negative) 08/07/21 Blood Type O Positive 08/07/21 Antibody Screen NEGATIVE 08/07/21 Testing Electrocardiogram Date: 08/07/21 Findings: + NSR @ (75) Chest X-Ray Date: 08/07/21 FINDINGS: The cardiomediastinal and hilar silhouettes are within normal limits. No pneumothorax, pleural effusion, airspace consolidation or overt pulmonary edema. Degenerative changes of the shoulders and spine. Lumbar spinal fusion hardware. IMPRESSION: No acute process. Echocardiogram Date: 06/07/21 EF 55-60%. No regional motion abnormality. Borderline concentric LVH. No significant valvular disease. Grade 1 diastolic dysfunction. Cardiac Catheterization Date: 10/03/17 IMPRESSION AND PLAN: Moderate mid LAD stenosis with borderline first diagonal branch proximal stenosis. Normal left ventricular systolic function. RECOMMENDATIONS: Medical therapy and aggressive risk factor modification.
--- NOTE | 2021-08-15 09:46 | History & Physical Report ---
Date of Service August 15, 2021 date of surgery: 09/04/21 Procedure: Left Total Knee Arthroplasty Surgeon: Greg Frederick Assessment & Plan (1) Arthritis of knee, left: Plan: patient would like to proceed with left total knee replacement at [facility] with Dr Frederick. she will need cardiac and medical clearance prior to surgery, she will discuss stopping her Eliquis with them. plan will be discharge home with HHPT. will schedule f/u in the office 2 weeks post op. The risks and benefits have been discussed including, but not limited to, risk of infection, nerve injury, stiffness, loss of motion, failure to improve, etc. Reasonable outcomes and options of treatment were discussed. An explanation of appropriate alternatives to the procedure that may be advantageous were discussed and their risks and benefits, as well as the risks and benefits of not proceeding with treatment. I offered to answer any additional inquiries concerning the treatment involved. All the patient's questions were answered. The patient is agreeable, understanding of the treatment plan and alternatives, and wishes to proceed with the treatment plan. History of Present Illness Chief Complaint: left knee pain Primary Care Provider: Rianna Landry DO Adelaida is a 76 year old female who complains of chronic left knee pain, presents for pre-op evaluation prior to a left total knee replacement by Dr Frederick at [facility]. she has complaints of pain and decreased range of motion in her left knee. she denies any recent injuries or trauma. pain rated as 8/10. Currently the patient states that the symptoms are moderate-severe and is described as aching, sharp and throbbing. Her symptoms are aggravated by ascending stairs, daily activities, first steps while awake walking. she is unable to take NSAIDs due to taking Eliquis. Allergies Allergy/AdvReac Type Severity Reaction Status Date / Time bee pollen Allergy Severe Hives, Verified 08/03/21 10:56 throat swelling honey Allergy Severe Throat Verified 08/03/21 10:56 swells, wheezing adhesive tape Allergy Mild Irritation, Verified 08/03/21 10:56 rash moxifloxacin AdvReac Intermediate "Knocks me Verified 08/03/21 10:56 out" Home Medications Medication Instructions Recorded Confirmed Type esomeprazole magnesium 20 mg 20 mg PO QAM #90 tab 12/29/19 08/02/21 Rx tablet,delayed release atorvastatin 40 mg tablet 40 mg PO 3XWK #90 tab 10/02/20 08/02/21 Rx diltiazem HCl 120 mg 120 mg PO HS #90 cap 04/09/21 08/02/21 Rx capsule,extended release 24 hr (Cartia XT) lisinopril 20 1 tab PO QAM #90 tab 05/07/21 08/02/21 Rx mg-hydrochlorothiazide 12.5 mg tablet tramadol 50 mg tablet See Rx Instructions PO q6h PRN 05/07/21 08/02/21 Rx #240 tab apixaban 5 mg tablet (Eliquis) 5 mg PO BID #180 tab 06/08/21 08/02/21 Rx cholecalciferol (vitamin D3) 10 10 mcg PO QAM 08/02/21 08/02/21 History mcg (400 unit) tablet (Vitamin D3) potassium chloride 20 mEq 20 meq PO QAM 08/02/21 08/02/21 History tablet,extended release zinc 50 mg tablet 50 mg PO QAM 08/02/21 08/02/21 History Past Med/Surg History Medical History Atrial fibrillation [facility] cardiology appt 08/23 (previously follows with [facility]) Chronic anemia Hgb baseline 11-12 range Coronary artery disease Moderate mid LAD stenosis with borderline first diagonal branch proximal stenosis per 09/2017 cardiac cath > medically managed GERD (gastroesophageal reflux disease) History of myocardial infarction 2017 History of shingles HLD (hyperlipidemia) HTN (hypertension) Lumbar disc disease Lumbar spinal stenosis Osteoarthritis Surgical History H/O hysterectomy with oophorectomy History of appendectomy History of back surgery Multiple (x3 total) L2-L4 hardware removal, T12-L2 fusion (05/29/18 at [facility]) History of cardiac cath 09/2017 - [facility] > no stents History of carpal tunnel release of both wrists R/L History of cataract surgery R/L History of colonoscopy History of esophagogastroduodenoscopy (EGD) Hx of arthroscopic knee surgery Right Hx of foot surgery Foot, heel, lower tib/fib surgery Nausea and vomiting after administration of anesthetic agent S/P evacuation of hematoma Evacuation lumbar hematoma (r/t post-op leak)- 06/01/18: Grade 1 view, [place]#2, ETT 7.5 at [facility]. Status post insertion of spinal cord stimulator Removed 2013 [place] teeth removed Family History Mother Diabetes Family history of diabetes mellitus Coronary heart disease Heart disease Myocardial infarction Hypertension Sister Breast cancer Father Coronary heart disease Heart disease Myocardial infarction Hypertension Other FHx: brain cancer FHx: breast cancer No family history of adverse response to anesthesia Denies family history of Ovarian cancer Prostate cancer Lung cancer Colorectal cancer Social History Smoking Status: Never smoker Second Hand Exposure: Yes (IN THE PAST *EX SMOKED); Hx Alcohol Use: Yes Alcohol Intake Frequency: Monthly or Less Hx Substance Use: No Preferred Language: [place] Citizen Communication Ability: Effective Visual Impairment: No Limitations Hearing Ability: Normal Rotary Drum Dyer Required: No Beliefs That Will Affect Care: None marital status: / Current Living Situation: Alone current occupational status: retired How many Children do You have: 3 How many Children do You have Comment: 3 boys Feels Safe at Home: Yes Childhood Exposure to Second-Hand Smoke: No Diet Comment: regular caffeine: Yes during the past year weight has: remained stable Dental Care, Regularly: No Physical Activity Frequency: 3-4 Times per Week Seatbelt Use: always Sunscreen Use: No Assistive Devices: Glasses Review of Systems Review of Systems: All systems reviewed & are unremarkable except as noted in HPI & below Constitutional: no fever, no chills and no sweats Respiratory: no cough and no dyspnea Cardiovascular: no chest pain, no dyspnea and no orthopnea Gastrointestinal: no abdominal pain, no nausea and no vomiting Musculoskeletal: as per Subjective / HPI Physical Exam Physical Exam: HT: 5ft WT: 78.7 kg Constitutional: WD/WN, vitals as above no acute distress Respiratory: normal respiratory effort, lungs clear to auscultation no respiratory distress, no labored breathing and does not use accessory muscles Cardiovascular: RRR, no murmur, no edema Gastrointestinal (Abdomen): normal bowel sounds, soft, nontender, no hepatosplenomegaly Musculoskeletal: Knee: + knee abnormal to inspection (LEFT KNEE), + effusion (+1 effusion), + limited ROM of knee (ROM 0/3/110), + knee ROM with crepitation, + joint line tenderness (medial joint line) and + Carlyn's sign positive; no skin erythema, no ecchymosis, no surgical incision (well healed portals), no v algus laxity, no varus laxity, anterior drawer test negative, Compa's sign negative and pivot shift test negative Results & Data Results & Data ([facility]) Diagnostic Findings Left Knee X-ray: left knee series confirms degenerative changes to the left knee, greatest medial compartments and patellofemoral joint, showing joint space narrowing, osteophyte formation and subchondral sclerosis. no acute bony pathology noted.
[~2021-09-04 09:18] MED LIST changes: -ACETAMINOPHEN 1,000 MG/100 ML VIAL IV ONE; +BUPIVACAINE 0.5 % 5 MG/1 ML PF 10ML VIAL ONE; -CEFAZOLIN 2000MG 2,000 MG/15 ML SYR IV SCH; +CeleBREX 200 MG CAP PO SCH; +EPINEPHrine INJ 1 MG/ML AMP ONE; +FAMOTIDINE 20 MG TAB PO SCH; +GABAPENTIN 300 MG CAP PO SCH; -LR 60ML/HR IV SCH; +METOCLOPRAMIDE HCL 10 MG TABLET PO SCH; +ROPIVACAINE 0.5% 5 MG/ML 30 ML VIAL ONE; +ROPIVACAINE 0.5% HCL/PF 150 MG, BUPIVACAINE 0.75% MPF 20 ML, EPINEPHrine 30MG/30ML (OR ... INFIL SCH; -SODIUM CHLORIDE 0.9% 1,000 ML IV SCH; +ceFAZolin 2000MG 2,000 MG/15 ML SYR IV SCH; +dexAMETHasone 4 MG TAB PO SCH
[2021-09-04] MEDS ORDERED: TRANEXAMIC ACID / 0.7% NACL 1,000 MG/100 ML BAG IV ONE ×2 (10:12)
--- NOTE | 2021-09-04 10:14 | History & Physical Bridge Note ---
Date of Service September 04, 2021 History & Physical Bridge Note I have examined the patient, reviewed the History & Physical and in the interval since the performance of the History & Physical I have noted the following changes of clinical significance: no changes noted
[2021-09-04] MEDS ORDERED: Nursing to Pharmacy Communication SCH (10:15)
[2021-09-04] MEDS ORDERED: MIDAZOLAM HCL 1 MG/ML 2ML VIAL ONE (10:37)
[2021-09-04] MEDS ORDERED: PROPOFOL IV EMULSION 10 MG/ML 20 ML VIAL IV ONE (10:37)
[2021-09-04] MEDS ORDERED: fentaNYL citrate 100 MCG/2 ML VIAL ONE ×2 (10:37→12:57)
[2021-09-04] MEDS ORDERED: ePHEDrine sulfate 50 MG/ML AMP IV PRN (10:50)
[2021-09-04] MEDS ORDERED: PHENYLEPHRINE 100MCG/ML 5ML SYR IV PRN (10:50)
[2021-09-04] MEDS ORDERED: LABETALOL HCL IV 5 MG/ML 20ML IV PRN (10:50)
[2021-09-04] MEDS ORDERED: ONDANSETRON INJ 2 MG/ML 2 ML VIAL IV PRN ×2 (10:50→16:12)
[2021-09-04] MEDS ORDERED: HYDROmorphone INJ 1 MG/ML SYRINGE IV PRN ×2 (10:50→16:12)
[2021-09-04] MEDS ORDERED: ATROPINE SULFATE 0.1 MG/ML 10ML SYR IV PRN (10:50)
[2021-09-04] MEDS ORDERED: ONDANSETRON INJ 2 MG/ML 2 ML VIAL ONE ×2 (11:18→12:48)
[2021-09-04] MEDS ORDERED: ORTHO JOINT ANESTHETIC ONE (11:58)
[2021-09-04] MEDS ORDERED: DEXAMETHASONE SOD INJ 4 MG/ML VIAL ONE (12:48)
[2021-09-04] MEDS ORDERED: ROCURONIUM BROMIDE 10 MG/ML 5 ML VIAL IV ONE ×5 (13:00)
[2021-09-04] MEDS ORDERED: GLYCOPYRROLATE 0.2 MG/ML VIAL ONE ×2 (13:00→13:16)
[2021-09-04] MEDS ORDERED: NEOSTIGMINE METHYLSULFATE 1 MG/ML 10ML VIAL ONE (13:16)
[2021-09-04] MEDS ORDERED: METOPROLOL TARTRATE 1 MG/ML VIAL IV ONE (13:17)
--- NOTE | 2021-09-04 13:47 | Operative Report ---
Post Operative Report Pre & Post Diagnosis Operation Date: 09/04/21 11:55 Pre-Op Diagnosis: Osteorarthritis of Left Knee Post-Op Diagnosis: Osteorarthritis of Left Knee I identified the patient and participated in the time-out.: Yes Procedure Operation Date: 09/04/21 11:55 Actual Procedures p Left Total Knee Arthroplasty(Left) utilizing [employer]ño [employer]hew journey 2 patient matched total knee arthroplasty size femur 4 tibia 3 polytwelve patella 29 oval- Greg Frederick DO Surgeon Greg Frederick DO Distance Education Coordinator APARNA Calzada Estimated Blood Loss 5 Findings Consistent with Post-Op Diagnosis Patient presents with severe end-stage tricompartmental DJD eburnated [id number] marginal osteophyte subchondral sclerosis with moderate to large effusion left knee DJD Specimens Bone and cartilage Drains Medium bore Hemovac Anesthesia Type MAC Spinal Regional Complications none Disposition Accompanied Patient To Recovery: No Disposition: Recovery Room Indications Patient presents with severe end-stage tricompartmental DJD left knee no response to conservative management clinic physical therapy anti-inflammatories relative rest activity modification corticosteroid injection viscosupplementation above intraoperative findings were noted Description of Procedure After proper prepping and draping of the left lower extremity anterior midline incision was made over the region of the extensor extensor mechanism after meticulous hemostasis was obtained and maintained in subcutaneous tissues a medial parapatellar incision was made The patella was subluxed lateralward the medial lateral gutter were cleaned from any hypertrophic synovitis and scar tissue of the distal femoral block was placed and the distal femoral osteotomy cut was made subsequently the chamfers anterior and posterior osteotomy cuts were made utilizing the 4-in-1 block the tibia was subsequently subluxed anteriorward medial and ateral meniscal remnants were excised in their entirety remnants of the anterior and posterior cruciate ligaments were excised in their entirety excellent exposure of the proximal tibia was obtained the tibial osteotomy guide was placed on the proximal tibial osteotomy cut was made once again the knee was irrigated with copious amounts of sterile saline solution the patella was subsequently everted lateralward thickened scar tissue around the patella was removed the patella was subsequently cut utilizing a freehand technique and was drilled prepared for final preparation and placement of patella socially flexion-extension gaps were checked and the equal and symmetric trials were placed to the appropriate femoral and tibial trials with poly-spacer being placed for equal flexion and extension gaps and full range of motion including extension to 0 and flexion to 140 the trial components after having been taken to recovery range of motion was subsequently removed meticulous he mostasis was obtained and maintained subsequently a knee block injection of joint cocktail including ropivacaine 0.5% 150 mg. Bupivacaine 0.5% epinephrine 1-200,030 mL's toradol 30 mg dexamethasone 4 mg ketamine 10 mg clonidine 100 micrograms normal saline solution 30 mg was infiltrated into the soft tissues of the posterior knee medial lateral gutters and periosteal synovium special attention was paid to protect neurovascular structures at all times subsequently trial components having been removed the knee was irrigated with sterile saline solution. debris was removed the proximal tibia was subsequently prepared and was made ready for the placement of the tibial component tibial component was also cemented and tamped into position the femoral component was subsequently placed and cemented in the position the patellar component was subsequently cemented in position because hemostasis once again obtained and maintained wound having been thoroughly irrigated with debridement and debridement lavage was performed as well as a medial parapatellar incision closed with #1 Vicryl in interrupted fashion subcutaneous was closed with #2 Vicryl skin was closed with skin clips. PA-C was necessary for prepping and drapping as well as wound closure of deep fascia Sub cutaneous tissue and skin and was necessary for the case. A sterile compressive dressing was placed patient was taken to recovery in stable condition of report dictated by Otoniel I attest to the content of the Intraoperative Record and any orders documented therein. Any exceptions are noted below.Due to the complex nature of the procedure, the entire surgery was performed with the operational assistance of APARNA Calzada. The community assistant, under direct supervision, was involved in the actual performance of all aspects of the surgical procedure including hemostasis, tissue retraction and incision, instrument management, patient positioning, and wound closure. I attest to the content of the Intraoperative Record and any orders documented therein. Any exceptions are noted below.
[2021-09-04] MEDS: fentaNYL citrate 100 MCG/2 ML VIAL IV PRN ×4 (14:58→15:13)
--- NOTE | 2021-09-04 14:58 | XRay Report ---
XR knee LT 1 or 2V routine CLINICAL HISTORY: Postoperative evaluation. COMPARISON: Knee radiographs July 13, 2015. FINDINGS: Alignment of the total left knee arthroplasty is anatomic. There is no periprosthetic frac ture or unexpected radiopaque body. Surgical drains are in place. IMPRESSION: Expected findings following total left knee arthroplasty. ACT 112: Negative or not required by law. Electronically signed by: Flavio Moss M.D. 09/04/2021 2:57 PM
--- NOTE | 2021-09-04 15:41 | Anesthesiology Progress Note ---
Date of Service September 04, 2021 Anesthesia Post Procedure Vital Signs Vital Signs: Temp Pulse Pulse Resp BP Pulse Ox O2 Del Method 09/04/21 15:35 66 21 126/78 98 Nasal Cannula 09/04/21 15:25 98.6 F 68 11 L 123/74 93 Nasal Cannula 09/04/21 15:15 69 13 137/73 100 Nasal Cannula 09/04/21 15:05 79 15 102/74 100 Nasal Cannula 09/04/21 14:55 73 17 124/81 100 Oxymask 09/04/21 14:40 84 14 103/66 100 Oxymask 09/04/21 14:30 97.2 F L 91 H 18 113/67 95 Oxymask 09/04/21 09:50 97.9 F 82 20 161/85 H 97 Room Air O2 Flow Rate 09/04/21 15:35 2 09/04/21 15:25 2 09/04/21 15:15 4 09/04/21 15:05 4 09/04/21 14:55 7 09/04/21 14:40 7 09/04/21 14:30 5 09/04/21 09:50 Pain Intensity Left Knee: Pain Intensity: 4 Transfer of Care Handoff Completed per policy Notes Mental Status: alert / awake / arousable and participated in evaluation Patient Amnestic to Procedure: Yes Nausea / Vomiting: adequately controlled Pain: adequately controlled Airway Patency, RR, SpO2: stable & adequate BP & HR: stable & adequate Hydration State: stable & adequate Anesthetic Complications: no major complications apparent and Pt Satisfied with anesthetic care
[2021-09-04] MEDS ORDERED: NALOXONE HCL 0.4 MG/1 ML VIAL/CARP IV PRN (16:12)
[2021-09-04] MEDS ORDERED: bisacodyL 10 MG SUPP PR PRN (16:12)
[2021-09-04] MEDS ORDERED: diphenhydrAMINE Capsule 25 MG CAP PO PRN (16:12)
[2021-09-04] MEDS ORDERED: METOCLOPRAMIDE HCL INJ 5 MG/ML 2 ML VIAL IV PRN (16:12)
[2021-09-04] MEDS ORDERED: SODIUM CHLORIDE 0.9% 1000ML 1,000 ML IV SCH (16:12)
[2021-09-04] MEDS ORDERED: MAGNESIUM HYDROXIDE SUSP 30 ML UDC PO PRN (16:12)
[2021-09-04 17:33] LABS: Creatinine Clr Calc Pharmacy 51.3 ml/min; Est GFR (Non-African American) 64.7 ml/min
[2021-09-04] MEDS: oxyCODONE HCL IR 5 MG TAB (IMMEDIATE RELEASE) PO PRN (20:14)
[2021-09-04] MEDS: ceFAZolin 2000MG 2,000 MG/15 ML SYR IV SCH (20:24)
[2021-09-04] MEDS: APIXABAN 5 MG TABLET PO SCH (20:24)
[2021-09-04] MEDS: DOCUSATE SODIUM 100 MG CAP PO SCH (20:25)
[2021-09-04] MEDS: ACETAMINOPHEN 500 MG TAB PO SCH (20:54)
[2021-09-04] MEDS ORDERED: dilTIAZem HCL 120 MG CAPCR PO SCH (21:00)
[2021-09-04] MEDS ORDERED: SENNA 8.6 MG TAB PO SCH (21:00)
[2021-09-05] MEDS: oxyCODONE HCL IR 5 MG TAB (IMMEDIATE RELEASE) PO PRN ×3 (01:20→12:23)
[2021-09-05] MEDS: ceFAZolin 2000MG 2,000 MG/15 ML SYR IV SCH (05:16)
[2021-09-05] MEDS: ACETAMINOPHEN 500 MG TAB PO SCH ×2 (05:16→14:36)
[2021-09-05] MEDS: DOCUSATE SODIUM 100 MG CAP PO SCH (08:20)
[2021-09-05] MEDS: APIXABAN 5 MG TABLET PO SCH (08:20)
[2021-09-05 08:25] LABS: Hematocrit (blood only) 28.7 % (34.1-44.9); Mean Corpuscular Hemoglobin 25.4 pg (25.0-34.0); Mean Corpuscular Hgb Conc 31.4 g/dL (32.0-36.0); Mean Corpuscular Volume 80.8 fL (80.0-100.0); Mean Platelet Volume 10.3 fL (9.4-12.3); Platelet Count 253 K/uL (130-400); RDW Coefficient of Variation 15.6 % (11.5-14.5); RDW Standard Deviation 45.8 fL (36.4-46.3); Red Blood Count 3.55 M/uL (3.93-5.22); White Blood Count 14.86 K/ul (4.8-10.8)
[2021-09-05 08:49] LABS: BUN Creatinine Ratio 22.2 (10-20); Calcium 8.1 mg/dl (8.5-10.1); Creatinine Clr Calc Pharmacy 49.6 ml/min; Est GFR (Non-African American) 62.1 ml/min
[2021-09-05] MEDS ORDERED: MULTIVITAMIN TAB PO SCH (09:00)
[2021-09-05] MEDS ORDERED: CHOLECALCIFEROL 400 UNITS 10 MCG TAB PO SCH (09:00)
[2021-09-05] MEDS ORDERED: LISINOPRIL/HCTZ 20/12.5MG 1 TAB TAB PO SCH (09:00)
[2021-09-05] MEDS ORDERED: ATORVASTATIN 40 MG TAB PO SCH (09:00)
[2021-09-05] MEDS ORDERED: POTASSIUM CHLORIDE CRTAB 20 MEQ TABCR PO SCH (09:00)
--- NOTE | 2021-09-05 15:19 | Orthopedic Progress Note ---
Date of Service September 05, 2021 Assessment & Plan (1) Arthritis of knee, left: Plan: Postop day #1 left total knee arthroplasty -PT/OT -Pain management as written -DVT prophylaxis: SCDs, teds, Eliquis twice daily -AM labs: Hemoglobin at 9 from 11.8 this morning, acute blood loss anemia due to surgical loss versus dilutional. Leukocytosis likely due to surgical stress versus perioperative steroids. Patient is asymptomatic. -Discharge planning: Plan on discharge home with home health PT. Plan on discharge home today. Admission and Anticipated Discharge Date Admission Date: September 04, 2021 Subjective Patient is postop day 1 left total knee. She is doing well this afternoon. Pain is well controlled. No other complaints. Review of Systems Constitutional: no fever, no chills and no sweats Respiratory: no cough and no dyspnea Cardiovascular: no chest pain, no dyspnea and no orthopnea Physical Exam Physical Exam: Stephen dressing to left knee is clean, dry, intact. No erythema. No calf tenderness. Toes are mobile. Good dorsiflexion. Distally neurovascular status and sensation intact. Constitutional: WD/WN, vitals as above Results & Data ([facility]) Vital Signs (Past 12 Hours) Vital Signs Temp Pulse Pulse Resp BP BP Pulse Ox 09/05/21 12:40 36.9 C 80 79 16 133/80 100/63 91 09/05/21 10:38 36.9 C 79 16 100/63 91 09/05/21 06:58 37 C 78 16 133/80 93 09/05/21 03:38 36.8 C 92 H 18 99/63 L 93 O2 Del Method 09/05/21 12:40 09/05/21 10:38 Room Air 09/05/21 06:58 Room Air 09/05/21 03:38 Room Air
--- NOTE | 2021-09-05 17:55 | Discharge Summary ---
Date of Service date of discharge: September 05, 2021 date of admission: 09-04-21 Admission HPI Per Admitting Provider Adelaida is a 76 year old female who complains of chronic left knee pain, presents for pre-op evaluation prior to a left total knee replacement by Dr Frederick at [facility]. she has complaints of pain and decreased range of motion in her left knee. she denies any recent injuries or trauma. pain rated as 8/10. Currently the patient states that the symptoms are moderate-severe and is described as aching, sharp and throbbing. Her symptoms are aggravated by ascending stairs, daily activities, first steps while awake walking. she is unable to take NSAIDs due to taking Eliquis. Principal Diagnosis left knee arthritis Discharge Exam Musculoskeletal left knee: NVDI, calf SNT, negative herve sign. DP palpable, able to wiggle toes/ankle movement without difficulty. CLIFFORD dressing clean dry and intact. expected post-operative bruising noted. Discharge Data Allergies Allergy/AdvReac Type Severity Reaction Status Date / Time bee pollen Allergy Severe Hives, Verified 09/04/21 09:53 throat swelling honey Allergy Severe Throat Verified 09/04/21 09:53 swells, wheezing adhesive tape Allergy Mild Irritation, Verified 09/04/21 09:53 rash moxifloxacin AdvReac Intermediate "Knocks me Verified 09/04/21 09:53 out" Procedures Performed Operation Date: 09/04/21 11:55 Actual Procedures p Left Total Knee Arthroplasty(Left) - Greg Frederick, Ordered Studies 09/04/21 05:00 US - OR guided needle placemen Routine Hospital Course (1) Arthritis of knee, left: Postop day #1 left total knee arthroplasty -PT/OT -Pain management as written -DVT prophylaxis: SCDs, teds, Eliquis twice daily -AM labs: Hemoglobin at 9 from 11.8 this morning, acute blood loss anemia due to surgical loss versus dilutional. Leukocytosis likely due to surgical stress versus perioperative steroids. Patient is asymptomatic. -Discharge planning: Plan on discharge home with home health PT. Plan on discharge home today. Total Time Total Time Spent Total Time Spent (In Minutes): 20 Discharge Plan Discharge Items Patient Disposition: Home - Home Health Services Reason For Visit: Osteorarthritis of Left Knee Discharge Diagnosis: LEFT TOTAL KNEE REPLACEMENT Activity: Per Instructions section Weightbearing Comment: WBAT WITH WALKER Non-emergency contact: Surgeon Call non-emergency contact if: you have any medication questions, your temperature is above 101, your wound has increased redness, your wound has increased drainage and your wound pain has increased Follow-up/Referrals: Rianna Landry DO [Primary Care Provider] - Diet: Regular Addtl Attending Provider Instructions: ACTIVITY RECOMMENDATIONS: SELF CARE INSTRUCTIONS AFTER TOTAL KNEE REPLACEMENT A. You may need to continue a physical therapy program after discharge from the hospital. There are several options available to you. Your doctor will assist you in selecting the best one for you. 1. An out-patient facility 2 to 3 times a week for therapy or home therapy. 2. Continue working on all exercises taught to you in the hospital. Your goals should be to increase bending of your knee to 90 degrees and beyond and to fully straighten your knee. B. You may progress at your own pace from walking with a walker or crutches to a cane; then to no assistive devices. C. Make walking a part of your daily routine. Be up as much as comfortable with rest periods throughout the day. Rest with leg elevation is very important. Use the ice wrap frequently for the first 3-4 weeks. D. There are no restrictions on activities. You may ride in a car, shop, participate in auto glass worker and all social activities. E. Wear the long elastic stockings (ENDY hose) 20 hours a day for 2 weeks after surgery. They can be removed several times a day for laundering and for a bath. F. You may shower, no tub baths until cleared by your doctor. SPECIAL CARE INSTRUCTIONS: VERY IMPORTANT TO READ AND REVIEW A. There are a few signs you need to watch for after you are home. Call [facility] if you notice any of the followin. Increased severe knee pain. Some pain is expected especially when you exercise. 2. Increased swelling in your leg or knee; pain or swelling of the calf muscle in either lower leg. 3. Any fluid drainage from the incision. 4. Shortness of breath or chest pain. B. Please call [facility] at if you have any concerns or questions about your operation or recovery. The doctor or his nurse will return your call promptly. C. You must take antibiotics before dental work, bladder, bowel or other surgery. Your doctor will provide you with a permanent care to carry describing this precaution. IMPORTANT: * REMEMBER TO TAKE ASPIRIN, 81 MG, TWICE DAILY FOR 4 WEEKS UNLESS OTHERWISE DIRECTED. THIS IS YOUR BLOOD THINNER. * HIGH RISK PATIENTS MAY BE PRESCRIBED A STRONGER BLOOD THINNER. THIS WILL BE PROVIDED AT DISCHARGE. * CALL IF INCREASED PAIN, REDNESS, DRAINAGE OR FEVER GREATER THAT 101. * WEAR ENDY HOSE 20 HOURS PER DAY FOR 2 WEEKS. * CLIFFORD Dressing- This is a large suction dressing covering your incision. This will help pull any excess drainage from the wound and allow your incision to heal properly. You may shower with this if you can keep the unit outside of the shower. If any bleeding or leakage is noted please call your doctor's office. This will remain on your incision for 7 days and then should be removed. This can be done yourself or by the home nursing staff if applicable. The entire unit is disposable once removed. Once removed, keep incision clean and dry. If redness or drainage is noted, please call your surgeon. ONCE CLIFFORD IS REMOVED, FOLLOW THESE INSTRUCTIONS: DERMABOND Prineo- This is a mesh tape dressing that is covered with glue. It should remain in place until the incision is properly healed, usually 10-14 days. This dressing is designed to naturally slough off. You may trim the excess mesh tape as it peels off. Incision may be briefly wet in a shower. Dry immediately by blotting with a clean, dry towel. Do not bath or swim until instructed by your doctor. Do not scratch, rub, or pick at the dressing. Do not apply any topical ointments or lotions until dressing is completely removed and/or instructed by your doctor. There may be a small piece of suture material at one end of your incision. Do not pull or trim this. If it is bothersome or catching on clothing, you may cover it with a band-aid. IF INCISION IS LEAKING THROUGH DRESSING, CALL THE OFFICE . FOLLOW UP VISIT: If appointment is not already scheduled: Please call [facility] to make a follow-up appointment for 2 weeks after your surgery at . Stand-Alone Forms: [employer], Smoking Cessation Medications and DC Order Prescriptions: New acetaminophen [Tylenol Extra Strength] 500 mg Tablet 1,000 mg PO Q8 Qty: 60 0RF oxycodone 5 mg Tablet 5 - 10 mg PO .Q4h-6h MDD 6 PRN (Reason: pain) Qty: 30 0RF Rx Instructions: Ongoing therapy, Dr. Wall supervising cefadroxil 500 mg capsule 500 mg PO BID Qty: 14 0RF Continued esomeprazole magnesium 20 mg tablet,delayed release (DR/EC) 20 mg PO QAM Qty: 90 1RF atorvastatin 40 mg tablet 40 mg PO 3XWK Qty: 90 1RF Rx Instructions: takes Friday, Friday and Friday diltiazem HCl [Cartia XT] 120 mg capsule,extended release 24hr 120 mg PO HS Qty: 90 1RF lisinopril-hydrochlorothiazide 20-12.5 mg tablet 1 tab PO QAM Qty: 90 1RF Eliquis 5 mg tablet 5 mg PO BID Qty: 180 3RF potassium chloride 20 mEq tablet extended release 20 meq PO QAM zinc 50 mg Tablet 50 mg PO QAM cholecalciferol (vitamin D3) [Vitamin D3] 10 mcg (400 unit) Tablet 10 mcg PO QAM Discontinued tramadol 50 mg tablet See Rx Instructions PO q6h PRN (Reason: pain) Qty: 240 0RF Rx Instructions: Take 1-2 tabs PO q6h PRN; coenzyme Q10 [CoQ-10] 100 mg Capsule 100 mg PO DAILY Discharge Orders: Discharge Order (Routine); Ordered 09/05/21 Ordered By: Stone Robertson Admission Data Admit Date/Time: 09/04/21 14:25 Attending Provider: Greg Frederick Admit Provider: Greg Frederick Primary Care Provider: Rianna Landry Other Providers: Dannie Saravia [facility] Other Interventions: Discharge Summary Assessment (RN) Last Done: 09/05/21 12:40
== END 2021-09-05 15:46 | disposition home health service (06) ==
LOC: ASU 09:18 → 3W 09:18